=== PATIENT | male | born 1945 | race Caucasian/White ===

== ENCOUNTER → 2018-08-13 07:59 | Outpatient (CLI) | payer OTHER, SELFPAY ==
[2018-08-13 08:35] LABS: Add Manual Diff / Slide Review NO; Basophils Percent Auto 0.6 % (0-2); Eosinophils Percent Auto 2.1 % (2-4); Hemoglobin 15.3 g/dL (13.5-17.5); Lymphocytes Percent Auto 24.2 % (25-40); Mean Corpuscular Hemoglobin 32.4 PG (26-34); Mean Corpuscular Volume 95.3 fL (80-100); Monocytes Percent Auto 8.5 % (3-14); Neutrophils Absolute Auto 3600 /uL (3000-5900); Neutrophils Percent Auto 64.6 % (50-75); Platelet Count 247 X10^3/uL (150-400); Red Blood Cell Count 4.72 X10^6/uL (4.5-5.9); Red Cell Distribution Width 13.4 % (11.6-14.8); White Blood Cell Count 5.6 X10^3/uL (4.5-11.0)
[2018-08-13 08:44] LABS: Alanine Aminotransferase 29 IU/L (21-72); Albumin 3.8 g/dL (3.5-5.0); Albumin Globulin Ratio 1.5 (1.0-2.8); Alkaline Phosphatase 66 U/L (38-126); Aspartate Aminotransferase 26 IU/L (17-59); BUN Creatinine Ratio 15.6 (6-22); Bilirubin Total 0.4 mg/dL (0.2-1.3); Blood Urea Nitrogen 14 mg/dL (9-20); Carbon Dioxide 31 mmol/L (22-32); Chloride 101 mmol/L (98-107); Cholesterol 200 mg/dL (140-199); Estimated Glomerular Filt Rate > 60.0 mL/min (>60); Globulin 2.6 g/dL (1.7-4.1); Glucose 80 mg/dL (80-110); HDL Cholesterol 57 mg/dL (40-60); HEMOLYSIS < 15 (0-50); LDL Cholesterol Calculated 130 mg/dL (<100); Potassium 4.1 mmol/L (3.4-5.1); Sodium 141 mmol/L (137-145); Total Protein 6.4 g/dL (6.3-8.2); Triglycerides 63 mg/dL (35-150)
[2018-08-13 09:11] LABS: Prostate Specific Antigen Scrn 1.04 ng/mL (0.1-4.0)
== END ==
PROVIDERS: PCP Internal Medicine; Visit Provider Internal Medicine
DX: C85.90 Non-Hodgkin lymphoma, unspecified, unspecified site (principal); N40.1 Benign prostatic hyperplasia with lower urinary tract symptoms; Z12.5 Encounter for screening for malignant neoplasm of prostate
CPT/HCPCS: 36415; 80053; 80061; 85025; G0103

== ENCOUNTER 2019-03-15 05:26 | Emergency (ER) | payer OTHER, SELFPAY ==
[2019-03-15 05:35] VITALS: BP 171/111; PULSE 99; RESP 16; TEMP 36.6; O2SAT 99
[2019-03-15 05:39] VITALS: BP 165/80
[2019-03-15 05:44] LABS: Bacteria Urine None Seen
[2019-03-15 05:51] LABS: Appearance Urine UA TURBID; Bilirubin Urine UA NEGATIVE (NEGATIVE); Color Urine UA BROWN; Glucose Urine UA NEGATIVE (Negative); Ketones Urine UA TRACE (NEGATIVE); Leukocyte Esterase Urine UA TRACE (NEGATIVE); Nitrite Urine UA NEGATIVE (Negative); Occult Blood Urine UA 3+ (Negative); Protein Urine UA 2+ (Negative); Urobilinogen Urine UA 0.2 E.U./dL (0.2); pH Urine UA 6.5 (4.5-8.0)
[2019-03-15 05:53] LABS: RBC Urine >100/HPF (0-5/HPF); WBC Urine 0-1/HPF (0-5/HPF)
[2019-03-15 05:54] LABS: Culture Indicated Urine Specimen Cultured
--- NOTE | 2019-03-15 06:37 | ED.MALEGU ---
HPI - Male Genitourinary General Chief complaint: Urogenital-Male Stated complaint: urinary retention x3 hours Time Seen by Provider: 03/15/19 05:39 Source: patient Mode of arrival: ambulatory Limitations: no limitations History of Present Illness HPI Narrative: Patient is a 73-year-old male with a known history of BPH. Within the past week underwent a urologic procedure for this condition. He stated that he was told by the urologist that he would have some bleeding. He stated he did have some bleeding immediately after the procedure but that has since improved. He states that for the past day he has had decreased urine output. Decreased stream. Urgency and then blood in his urine this morning. Related Data Home Medications Medication Instructions Recorded Confirmed CA PANTOTHENATE/FOLIC ACID/VIT 1 tab PO QDAY #0 tab 06/20/13 09/14/18 (MULTIVITAMIN) Previous Rx's Medication Instructions Recorded tamsulosin 0.4 mg capsule 0.4 mg PO DAILY #90 cap 11/16/18 Allergies Allergy/AdvReac Type Severity Reaction Status Date / Time wheat Allergy Intermediate Verified 09/14/18 15:24 No Known Drug Allergies Allergy Unknown Verified 09/14/18 15:24 Review of Systems Constitutional Denies fever(s) Cardiovascular Denies chest pain and Denies dyspnea Respiratory Denies dyspnea Gastrointestinal Gastrointestinal: Reports abdominal pain, Denies diarrhea, Denies nausea and Denies vomiting Genitourinary Denies dysuria, Reports urinary frequency, Reports urinary hesitancy, Reports urinary incontinence and Reports urinary urgency Comments: Blood in the urine Integumentary/Breasts Denies rash Hematologic/Lymphatic Denies easy bleeding and Denies easy bruising [facility] Medical History Hearing deficit (Chronic) Vision disorder (Chronic) Non Hodgkin's lymphoma (Chronic 06/20/13) BPH loc w urin obs/LUTS (Chronic) H/O adenomatous polyp of colon (Chronic) Acne (Resolved ~1959) Chicken pox (Resolved ~1953) Measles (Resolved) Mumps (Resolved) Seasonal allergies (Resolved ~1960) TIA (transient ischemic attack) (Resolved ~2014) Social History Smoking Status: Former smoker Exam Initial Vital Signs Initial Vital Signs: Vital Signs Temperature 97.9 F 03/15/19 05:35 Pulse Rate 99 H 03/15/19 05:35 Respiratory Rate 16 03/15/19 05:35 Blood Pressure 171/111 H 03/15/19 05:35 Pulse Oximetry 99 03/15/19 05:35 Const General: cooperative, comfortable, well developed, well groomed and No acute distress Orientation: alert and oriented x3 Resp Effort & Inspection: normal respiratory effort Auscultation: clear to auscultation bilaterally Cardio Rate: regular rate Rhythm: regular rhythm GI Other: Lower abdominal distention and pain External: normal external exam and circumcised Meatus: meatus normal Skin Lesions: no lesions Rashes: no rashes Neuro General: alert and awake Cognition: normal cognition Speech: speech normal Extrem General: normal to inspection and capillary refill normal Psych Appearance: grossly normal and well kempt Course Orders Ordered: ED Orders 03/15/19 05:34 Urinalysis and Microscopic Stat Urine Culture Stat Vital Signs - 8 hr 03/15/19 05:35 03/15/19 05:39 Temperature 97.9 F Pulse Rate 99 H Respiratory Rate 16 Blood Pressure 171/111 H Blood Pressure [Left Arm] 165/80 H Pulse Oximetry 99 MDM - Male Genitourinary Lab Data Attestation: I reviewed the patient's lab results. Lab Results 03/15/19 Range/Units 05:34 Urine Color Brown Urine Appearance Turbid Urine pH 6.5 (4.5-8.0) Ur Specific [place] 1.020 (1.000-1.035) Urine Protein 2+ H (Negative) Urine Glucose (UA) Negative (Negative) g/dL Urine Ketones Trace H (NEGATIVE) Urine Occult Blood 3+ H (Negative) Urine Nitrate Negative (Negative) Urine Bilirubin Negative (NEGATIVE) Urine Urobilinogen 0.2 (0.2) E.U./dL Ur Leukocyte Esterase Trace H (NEGATIVE) Urine RBC >100/hpf (0-5/HPF) Urine WBC 0-1/hpf (0-5/HPF) Urine Bacteria None seen (None) Ur Culture Indicated? Specimen cultured [facility] Narrative Medical decision making narrative: No signs of infection on the urinalysis. Patient was irrigated with fluid until there was a clear return of liquid. Had a discussion with the patient his regarding options to include leaving the catheter in versus removing it. We discussed the risks and benefits of this. After this discussion the patient opted to leave the catheter in. He is going to contact his urologist later today for a follow-up. He was given care instructions and return precautions with regard to the catheter. Both he and his expressed understanding and agreement with plan. Discharge Plan Departure Patient Disposition: Home Clinical Impression: Acute urinary retention Hematuria Qualifiers: Hematuria type: gross Qualified Code(s): R31.0 - Gross hematuria Instructions: How to Care for Your Del Real Catheter -- Male, DI for Hematuria Activity Restrictions/Additional Instructions: Later today contact your urologist to discuss follow-up. Return to the emergency department for any fevers, pain or if the Del Real catheter stops draining urine. Prescriptions: No Action CA PANTOTHENATE/FOLIC ACID/VIT (MULTIVITAMIN) 1 tab PO QDAY Qty: 0 RF: 0 tamsulosin 0.4 mg capsule 0.4 mg PO DAILY Qty: 90 RF: 3 Referrals: Niranjan Yi MD [Primary Care Provider] -
--- NOTE | 2019-03-15 06:55 | PC.NURSE ---
This RN met resistance when advancing catheter. Due to pt's recent procedure Dr. Reyes called to room to assess. Dr. Reyes was able to advance catheter the rest of the way. Urine return had noticeable blood. 500mL of manual irrigation performed, return became clear-light pink. Continuous irrigation hooked up and clear return continues. Dr. Reyes aware.
[2019-03-15 07:35] VITALS: BP 143/87; PULSE 83; RESP 18; O2SAT 98
== END 2019-03-15 07:35 | disposition home or self-care (01) ==
PROVIDERS: Emergency Provider Emergency Medicine; Family Provider Internal Medicine; PCP Internal Medicine
DX: R33.8 Other retention of urine (principal); R31.0 Gross hematuria
CPT/HCPCS: 51701; 51798; 81001; 87086; 99283

== ENCOUNTER 2019-08-02 08:41 | Inpatient (IN) | payer OTHER, SELFPAY ==
[2019-08-02] VITALS (8 sets, daily range): BP systolic 111–149; BP diastolic 55–77; PULSE 71–97; RESP 14–21; TEMP 36.5–38.2; O2SAT 97–99; BMI 25.0
--- NOTE | 2019-08-02 09:18 | ED_ITS ---
HPI - Abdominal Pain General Chief Complaint: Abdominal Pain Stated Complaint: stomach cramps nausea x3 days Time Seen by Provider: 08/02/19 09:09 Source: patient Mode of arrival: Ambulatory Limitations: no limitations History of Present Illness HPI narrative: Patient is [id number] male who presents with abdominal pain and right lower quadrant pain ongoing for last 2 days. He initially thought it was bad grapes that he ate he was having some cramping. However he has lost his appetite and he has intense pain in his right lower side every time he moves his leg or has any movement at all. He denies any nausea or vomiting. He has been taking some charcoal tablets of thinking that might help however he continues to have pain and discomfort. MD complaint: abdominal pain Onset (ago): day(s) (2) Pain Consistency: constant Location: RLQ Severity: severe Quality: cramping and stabbing Radiation: none Migration to: no migration Related Data Home Medications Medication Instructions Recorded Confirmed Hyaluronic Acid (chond-collgn) 1 dose PO DAILY 08/02/19 08/02/19 Vitamin B Capsule 1 cap PO DAILY 08/02/19 08/02/19 Vitamin D3 1 cap PO DAILY 08/02/19 08/02/19 ascorbic [id number] 1,000 mg PO DAILY 08/02/19 08/02/19 [Emergen-C] bilberry 1 cap PO DAILY 08/02/19 08/02/19 chromium chloride 1 dose PO DAILY 08/02/19 08/02/19 cyanocobalamin (vitamin B-12) 500 mcg PO DAILY 08/02/19 08/02/19 [Vitamin B-12] evening primrose oil 500 mg PO DAILY 08/02/19 08/02/19 lutein 1 tab PO DAILY 08/02/19 08/02/19 magnesium 1 tab PO DAILY 08/02/19 08/02/19 vitamin A 1 cap PO DAILY 08/02/19 08/02/19 Previous Rx's Medication Instructions Recorded tamsulosin 0.4 mg capsule 0.4 mg PO DAILY #90 cap 11/16/18 Allergies Allergy/AdvReac Type Severity Reaction Status Date / Time wheat Allergy Intermediate Verified 09/14/18 15:24 No Known Drug Allergies Allergy Unknown Verified 09/14/18 15:24 Review of Systems Review of Systems Narrative: GENERAL: Denies chills, fatigue, malaise, fever, sweats, travel HEENT: Denies sinus pain, ear pain, sore throat, difficulty swallowing, neck pain RESPIRATORY: Denies dyspnea, cough, wheezing, hemoptysis, sputum. CARDIOVASCULAR: Denies chest pain, palpitations, orthopnea, edema GASTROINTESTINAL: See HPI : Denies dysuria, frequency, incontinence, hematuria, urinary retention, flank pain. MUSCULOSKELETAL: Denies weakness, joint pain, or bony pain SKIN: No rash, no erythema, no pruritus NEUROLOGIC: Denies weakness, dizziness, headache, numbness, change in speech, confusion PSYCHIATRIC: No concerning psychosocial issues. 12 point review of systems is negative except for those stated above and HPI Patient History Medical History Acne (Resolved ~1959) BPH loc w urin obs/LUTS (Chronic) Chicken pox (Resolved ~1953) H/O adenomatous polyp of colon (Chronic) Hearing deficit (Chronic) Measles (Resolved) Mumps (Resolved) Non Hodgkin's lymphoma (Chronic 06/20/13) Seasonal allergies (Resolved ~1960) TIA (transient ischemic attack) (Resolved ~2014) Vision disorder (Chronic) Surgical History Anesthesia (Resolved) History of surgery (Resolved ~1988) History of tonsillectomy (Inactive ~1952) Family History Brother Liver cancer Brother Age: 82 High cholesterol Father Heart disease Mother Heart disease Sister Age: 69 Hypertension Social History Smoking Status: Former smoker Family History Brother Liver cancer Brother Age: 82 High cholesterol Father Heart disease Mother Heart disease Sister Age: 69 Hypertension Social History Smoking Status: Former smoker Exam Initial Vital Signs Initial Vital Signs: Vital Signs Temperature 97.7 F 08/02/19 08:50 Pulse Rate 96 H 08/02/19 08:50 Respiratory Rate 14 08/02/19 08:50 Blood Pressure 138/77 08/02/19 08:50 Pulse Oximetry 97 08/02/19 08:50 GENERAL: Well-appearing, well-nourished and in no acute distress. HEENT: Head atraumatic,EOMI, pupils reactive, face symmetric, moist mucous membranes CARDIOVASCULAR: Regular rate and rhythm without murmurs, rubs or gallops. RESPIRATORY: Breath sounds equal bilaterally, no wheezes rales or rhonchi. ABDOMEN: Soft, diffuse mild tenderness however extreme tenderness and right lower quadrant with guarding EXTREMITIES: Normal range of motion, no clubbing or edema. Neurovascularly intact NEUROLOGICAL: Alert and oriented x4.Normal gait and speech. Cranial nerves II through XII grossly intact. SKIN: Warm, dry, no laceration, no petechiae, no rashes or lesions. Course Orders Ordered: ED Orders 08/02/19 09:00 Complete Blood Count AUTO DIFF Stat Comprehensive Metabolic Panel Stat Lipase Stat Magnesium Stat 08/02/19 09:58 CT abdomen pelvis w con Stat 08/02/19 10:30 Urine Microscopic Stat 08/02/19 10:38 XR chest 1V Stat Troponin & CK Cardiac Panel Stat 08/03/19 05:00 Basic Metabolic Panel DAILY Complete Blood Count AUTO DIFF DAILY Magnesium DAILY 08/04/19 05:00 Basic Metabolic Panel DAILY Complete Blood Count AUTO DIFF DAILY Magnesium DAILY 08/05/19 05:00 Basic Metabolic Panel DAILY Complete Blood Count AUTO DIFF DAILY Magnesium DAILY Acetaminophen (Tylenol) 650 mg PO Q6HR PRN PRN Reason: As Needed for Fever/Mild Pain Cyanocobalamin (Vitamin B-12) 500 mcg PO DAILY [facility] Enoxaparin Sodium (Lovenox) 40 mg SUBCUT DAILY [facility] Sodium Chloride (Normal Saline 0.9%) 1,000 mls @ 150 mls/hr IV CONT VETO Last Admin: 08/02/19 10:09 Dose: 150 mls/hr Documented by: BTONER Piperacillin/Tazobactam/Dextrose (Zosyn) 3.375 gm in 50 mls @ 100 mls/hr IV Q6H [facility] Magnesium Oxide (Mag Ox) 400 mg PO DAILY [facility] Morphine Sulfate (Morphine) 2 mg IV Q4HR PRN PRN Reason: Breakthrough Pain Ondansetron HCl (Zofran) 4 mg IV Q4HR PRN PRN Reason: Nausea And Vomiting Oxycodone/Acetaminophen (Percocet 5/325) 1 tab PO Q4HR PRN PRN Reason: Pain, Moderate (4-6) Tamsulosin HCl (Flomax) 0.4 mg PO DAILY [facility] Vitamin B Complex (Vitamin B Complex) 1 cap PO DAILY [facility] Vitamin D (Vitamin D3) 1,000 unit PO DAILY [facility] Discontinued Medications Levofloxacin (Levaquin) 750 mg in 150 mls @ 100 mls/hr IV NOW ONE Stop: 08/02/19 12:08 Last Admin: 08/02/19 12:02 Dose: Not Given Documented by: LOYDUITT Piperacillin/Tazobactam/Dextrose (Zosyn) 3.375 gm in 50 mls @ 100 mls/hr IV NOW ONE Stop: 08/02/19 11:38 Last Infusion: 08/02/19 12:02 Dose: 0 mls/hr Documented by: Admin: 08/02/19 11:18 Dose: 100 mls/hr Documented by: CPRUITT Sodium Chloride (Normal Saline 0.9%) 1,000 mls @ 100 mls/hr IV CONT VETO Ketorolac Tromethamine (Toradol) 30 mg IV NOW ONE Stop: 08/02/19 10:38 Last Admin: 08/02/19 13:58 Dose: Not Given Documented by: UMM Morphine Sulfate (Morphine) 2 mg IV NOW ONE Stop: 08/02/19 09:16 Last Admin: 08/02/19 10:08 Dose: 2 mg Documented by: BTONER Consultations Consultation #1: Dr. jj, with surgery updated patient's symptoms test results. In the ED to see and evaluate patient. Requested Zosyn or Levaquin and Flagyl. Time: 11:11 Vital Signs Vital signs: Vital Signs - 8 hr 08/02/19 08:50 08/02/19 11:00 08/02/19 12:00 Temperature 97.7 F Pulse Rate 96 H 72 76 Respiratory Rate 14 17 21 Blood Pressure 138/77 Blood Pressure [Left Arm] 140/75 134/55 L Pulse Oximetry 97 99 98 08/02/19 13:00 Temperature Pulse Rate 76 Respiratory Rate 20 Blood Pressure Blood Pressure [Left Arm] 128/64 Pulse Oximetry 97 MDM - Abdominal Pain Lab Data Result diagrams: 08/02/19 09:00 08/02/19 09:00 Labs: Lab Results 08/02/19 08/02/19 08/02/19 Range/Units 09:00 09:00 10:30 WBC 18.3 H (4.5-11.0) X10^3/uL RBC 4.64 (4.5-5.9) X10^6/uL Hgb 15.0 (13.5-17.5) g/dL Hct 44.1 (41-53) % MCV 95.0 (80-100) fL MCH 32.4 (26-34) PG MCHC 34.1 (30-36) % RDW 13.2 (11.6-14.8) % Plt Count 241 (150-400) X10^3/uL Neut % (Auto) 88.9 H (50-75) % Lymph % (Auto) 2.9 L (25-40) % [place] % (Auto) 8.0 (3-14) % Eos % (Auto) 0.1 L (2-4) % Baso % (Auto) 0.1 (0-2) % Neut # (Auto) 32593 H (0081-5989) /uL Lymph # (Auto) 500 L (1289-7739) /uL [place] # (Auto) 1500 H (0-900) /uL Eos # (Auto) 0 (0-450) /uL Baso # (Auto) 0 (0-100) /uL Sodium 129 L (137-145) mmol/L Potassium 4.0 (3.4-5.1) mmol/L Chloride 90 L (98-107) mmol/L Carbon Dioxide 27 (22-32) mmol/L BUN 13 (9-20) mg/dL Creatinine 0.80 (0.66-1.25) mg/dL Estimated GFR > 60.0 (>60) mL/min BUN/Creatinine Ratio 16.3 (6-22) Glucose 123 H (80-110) mg/dL Calcium 8.9 (8.4-10.2) mg/dL Total Bilirubin 1.5 H (0.2-1.3) mg/dL AST 31 (17-59) IU/L ALT 17 L (21-72) IU/L Alkaline Phosphatase 89 (38-126) U/L Total Creatine Kinase (55-170) U/L CK-MB (CK-2) CK-MB (CK-2) Rel Index Troponin I (0.01-0.034) ng/mL Total Protein 7.1 (6.3-8.2) g/dL Albumin 3.9 (3.5-5.0) g/dL Globulin 3.2 (1.7-4.1) g/dL Albumin/Globulin Ratio 1.2 (1.0-2.8) Lipase 18 L (23-300) U/L Urine RBC None seen (0-5/HPF) Urine WBC None seen (0-5/HPF) Urine Bacteria None seen (None) Ur Culture Indicated? Cult not indicated Micro UA Comment Microscopic normal 08/02/19 Range/Units 10:38 WBC (4.5-11.0) X10^3/uL RBC (4.5-5.9) X10^6/uL Hgb (13.5-17.5) g/dL Hct (41-53) % MCV (80-100) fL MCH (26-34) PG MCHC (30-36) % RDW (11.6-14.8) % Plt Count (150-400) X10^3/uL Neut % (Auto) (50-75) % Lymph % (Auto) (25-40) % [place] % (Auto) (3-14) % Eos % (Auto) (2-4) % Baso % (Auto) (0-2) % Neut # (Auto) (5694-8256) /uL Lymph # (Auto) (1027-1510) /uL [place] # (Auto) (0-900) /uL Eos # (Auto) (0-450) /uL Baso # (Auto) (0-100) /uL Sodium (137-145) mmol/L Potassium (3.4-5.1) mmol/L Chloride (98-107) mmol/L Carbon Dioxide (22-32) mmol/L BUN (9-20) mg/dL Creatinine (0.66-1.25) mg/dL Estimated GFR (>60) mL/min BUN/Creatinine Ratio (6-22) Glucose (80-110) mg/dL Calcium (8.4-10.2) mg/dL Total Bilirubin (0.2-1.3) mg/dL AST (17-59) IU/L ALT (21-72) IU/L Alkaline Phosphatase (38-126) U/L Total Creatine Kinase 23 L (55-170) U/L CK-MB (CK-2) TNP CK-MB (CK-2) Rel Index TNP Troponin I < 0.012 (0.01-0.034) ng/mL Total Protein (6.3-8.2) g/dL Albumin (3.5-5.0) g/dL Globulin (1.7-4.1) g/dL Albumin/Globulin Ratio (1.0-2.8) Lipase (23-300) U/L Urine RBC (0-5/HPF) Urine WBC (0-5/HPF) Urine Bacteria (None) Ur Culture Indicated? Micro UA Comment Point of care testing: Urine Dip Bedside Urine Glucose Negative Bedside Urine Bilirubin - Negative Bedside Urine Ketone ++ 40 Urine Specific [place] 1.005 Bedside Urine Occult Blood +/- Bedside Urine pH 6.0 Bedside Urine Protein - Negative Bedside Urine Urobilinogen - Negative Bedside Urine Nitrite - Negative Bedside Urine Leukocytes - Negative Esterase Discharge Plan Departure Patient Disposition: Admitted As Inpatient Clinical Impression: Acute appendicitis with rupture Admit Date/Time: 08/02/19 13:36 Admit Provider: Joselin Jj
[2019-08-02 09:27] LABS: Add Manual Diff / Slide Review NO; Basophils Absolute Auto 0 /uL (0-100); Basophils Percent Auto 0.1 % (0-2); Eosinophils Absolute Auto 0 /uL (0-450); Eosinophils Percent Auto 0.1 % (2-4); Hematocrit 44.1 % (41-53); Lymphocytes Absolute Auto 500 /uL (1100-4500); Lymphocytes Percent Auto 2.9 % (25-40); Mean Corpuscular HGB Conc 34.1 % (30-36); Mean Corpuscular Hemoglobin 32.4 PG (26-34); Monocytes Absolute Auto 1500 /uL (0-900); Neutrophils Absolute Auto 16300 /uL (1500-7000); Neutrophils Percent Auto 88.9 % (50-75); Platelet Count 241 X10^3/uL (150-400); Red Blood Cell Count 4.64 X10^6/uL (4.5-5.9); Red Cell Distribution Width 13.2 % (11.6-14.8); White Blood Cell Count 18.3 X10^3/uL (4.5-11.0)
[2019-08-02 09:33] LABS: Alanine Aminotransferase 17 IU/L (21-72); Albumin 3.9 g/dL (3.5-5.0); Albumin Globulin Ratio 1.2 (1.0-2.8); Alkaline Phosphatase 89 U/L (38-126); Aspartate Aminotransferase 31 IU/L (17-59); BUN Creatinine Ratio 16.3 (6-22); Bilirubin Total 1.5 mg/dL (0.2-1.3); Blood Urea Nitrogen 13 mg/dL (9-20); Calcium 8.9 mg/dL (8.4-10.2); Carbon Dioxide 27 mmol/L (22-32); Chloride 90 mmol/L (98-107); Estimated Glomerular Filt Rate > 60.0 mL/min (>60); Globulin 3.2 g/dL (1.7-4.1); Glucose 123 mg/dL (80-110); HEMOLYSIS 17 (0-50); Lipase 18 U/L (23-300); Sodium 129 mmol/L (137-145); Total Protein 7.1 g/dL (6.3-8.2)
--- NOTE | 2019-08-02 09:58 | DI.CT.S_ITS ---
PROCEDURE: CT ABDOMEN PELVIS W CON INDICATIONS: right lower quad pain TECHNIQUE: After the administration of intravenous contrast, 5 mm thick sections acquired from the diaphragm to the symphysis. 5 mm coronal and sagittal reformats were acquired. For radiation dose reduction, the following was used: automated exposure control, adjustment of mA and/or kV according to patient size. COMPARISON: None. FINDINGS: Image quality: Excellent. ABDOMEN: Lung bases: 5 mm pulmonary nodule seen in the right lung base Solid organs: Liver is normal in size and enhancement. Gallbladder unremarkable. Biliary system is non dilated. Pancreas enhances normally. Spleen is normal in size and enhancement. No adrenal nodules. Kidneys demonstrate normal size and enhancement, without hydronephrosis. Simple appearing left renal cyst Peritoneum and bowel: Appendix is enlarged and there is marked mural enhancement. Multiple appendicoliths are seen measuring up to 5 mm for example image 53 series 2. There is extensive periappendiceal and pericecal inflammatory change and fat stranding. A few bubbles of gas appear to be extraluminal for example image 53 series 2 Nodes and vessels: No retroperitoneal or mesenteric adenopathy by size criteria. Aorta and inferior vena cava are normal in size. Miscellaneous: No ventral hernias. PELVIS: Genitourinary: Bladder wall thickness is normal. Prostate enlarged Miscellaneous: No inguinal hernias or adenopathy. Bones: No suspicious bony lesions. No vertebral body compression fractures. IMPRESSION: Acute, perforated appendicitis with extensive right lower quadrant inflammatory changes. No definite abscess. Multiple appendicoliths. Incidentally noted a 5 mm right lung base pulmonary nodule, indeterminate. Recommend followup with CT chest in 6 months to exclude metastatic/malignant possibilities. Critical findings were personally telephoned and discussed with Dr. Vera in the emergency department at 1013 hours on 08/02/19. Dictated by: Richmond Mondragon M.D. on 08/02/2019 at 10:08 Approved by: Richmond Mondragon M.D. on 08/02/2019 at 10:15
[2019-08-02] MEDS: MORPHINE 2 MG/ML INJ IV (10:08)
[2019-08-02] MEDS: SODIUM CHLORIDE 0.9% 1,000 ML 150 ML IV ×2 (10:09→14:58)
--- NOTE | 2019-08-02 10:38 | DI.RAD.S_ITS ---
PROCEDURE: XR CHEST 1V INDICATIONS: chest pain TECHNIQUE: One view of the chest was acquired. COMPARISON: [facility], , CHEST 1 VIEW, 01/25/2015, 15:47. FINDINGS: Surgical changes and devices: None. Lungs and pleura: Lungs are clear. No pleural effusions or pneumothorax. Mediastinum: Mediastinal contours appear normal. Heart size is mildly enlarged. Bones and chest wall: No suspicious bony lesions. Overlying soft tissues appear unremarkable. IMPRESSION: No acute cardiopulmonary pathology. Dictated by: Alejandro Kidd M.D. on 08/02/2019 at 11:13 Approved by: Alejandro Kidd M.D. on 08/02/2019 at 11:14
[2019-08-02 10:54] LABS: Creatine Kinase 23 U/L (55-170)
[2019-08-02 11:07] LABS: Troponin I < 0.012 ng/mL (0.01-0.034)
[2019-08-02] MEDS: PIPERACILLIN-TAZO 3.375 GM/50 ML FROZ.PIGGY IV ×2 (11:18→18:42)
--- NOTE | 2019-08-02 12:03 | PM.HP.1 ---
History of Present Illness History of Present Illness Date Patient Seen: 08/02/19 Time Patient Seen: 12:03 Chief complaint: stomach cramps nausea x3 days Narrative: This is a 74-year-old man with history of lymphoma treated many years ago, BPH s/p Urolift, who comes into the ER with a 3 day history of abdominal pain, now focal in the right lower quadrant. Initially he thought he had eaten something bad, which caused his abdominal pain. He has a history of intermittent abdominal pains, and a high sensitivity to gluten and other types of foods. He does not have a specific GI diagnosis relative to these things. With history kept him from coming into the ER when his pain initially started on Monday night. He came in today because his pain is not relenting, and is quite severe. He had a CT scan of the abdomen and pelvis which showed evidence of a perforated appendicitis with a local phlegmon, a few locules of extraluminal air, and some appendiculoliths present. There is no abscess on the CT scan. He has no appetite at this point. He has had a colonoscopy in the past. His last colonoscopy was in 2013, and he was told he had polyps and needed a repeat colonoscopy in 2019. His primary doctor is Dr. Yi. He believes it has been about 1 year since he saw Dr. Yi. He says he is otherwise well and healthy. He denies any dysuria. He has had good improvement in his BPH symptoms after his urolift. He has a good exercise tolerance and denies any chronic health complaints. ROS: Thirteen system review is negative other than as mentioned below and in HPI. PE: GENERAL: Well groomed and cooperative. Appears stated age. Answers questions promptly and appropriately. Vital signs noted. HENT: Normocephalic, atraumatic. Hearing intact. Oral mucosa is pink and moist. EYES: Conjunctiva pink, sclera white, no periorbital swelling. CARDIOVASCULAR: Regular rate. No pedal edema. RESPIRATORY: Normal respiratory rate, breathing comfortably on room air. GASTROINTESTINAL: Abdomen soft and non-distended; markedly tender focally in right lower quadrant; negative Rovsing sign, no generalized peritonitis GENITALURINARY: No flank tenderness. MUSCULOSKELETAL: Equal tone and mass bilaterally. SKIN: Warm, dry, soft, appropriate color for ethnicity. No other lesions, rashes, or wounds. NEURO: Alert and Oriented X 3. Good coordination. No ataxia, or sensory deficits, or cognitive issues. PSYCH: Appropriate affect and mood. Patient History Medical History Acne (Resolved ~1959) BPH loc w urin obs/LUTS (Chronic) Chicken pox (Resolved ~1953) H/O adenomatous polyp of colon (Chronic) Hearing deficit (Chronic) Measles (Resolved) Mumps (Resolved) Non Hodgkin's lymphoma (Chronic 06/20/13) Seasonal allergies (Resolved ~1960) TIA (transient ischemic attack) (Resolved ~2014) Vision disorder (Chronic) Surgical History Anesthesia (Resolved) History of surgery (Resolved ~1988) History of tonsillectomy (Inactive ~1952) Family History Brother Liver cancer Brother Age: 82 High cholesterol Father Heart disease Mother Heart disease Sister Age: 69 Hypertension Social History Smoking Status: Former smoker Family & Social History Family History Brother Liver cancer Brother Age: 82 High cholesterol Father Heart disease Mother Heart disease Sister Age: 69 Hypertension Safety & Behavioral: Feels Safe in Current Yes Environment Been Physically Hurt or No Threatened By a Person Tobacco & Substance use: Smoking Status Former smoker Meds Home Medications and Allergies Home Medications Medication Instructions Recorded Confirmed Type tamsulosin 0.4 mg capsule 0.4 mg PO DAILY #90 cap 11/16/18 08/02/19 Rx Hyaluronic Acid (chond-collgn) 1 dose PO DAILY 08/02/19 08/02/19 History Vitamin B Capsule 1 cap PO DAILY 08/02/19 08/02/19 History Vitamin D3 1 cap PO DAILY 08/02/19 08/02/19 History ascorbic [id number]-[id number]-bdu 1,000 mg PO DAILY 08/02/19 08/02/19 History [Emergen-C] bilberry 1 cap PO DAILY 08/02/19 08/02/19 History chromium chloride 1 dose PO DAILY 08/02/19 08/02/19 History cyanocobalamin (vitamin B-12) 500 mcg PO DAILY 08/02/19 08/02/19 History [Vitamin B-12] evening primrose oil 500 mg PO DAILY 08/02/19 08/02/19 History lutein 1 tab PO DAILY 08/02/19 08/02/19 History magnesium 1 tab PO DAILY 08/02/19 08/02/19 History vitamin A 1 cap PO DAILY 08/02/19 08/02/19 History Allergies Allergy/AdvReac Type Severity Reaction Status Date / Time wheat Allergy Intermediate Verified 09/14/18 15:24 No Known Drug Allergies Allergy Unknown Verified 09/14/18 15:24 Exam Vital Signs (past 8 hours): - 08/02/19 08:50 08/02/19 11:00 Temperature 97.7 F Pulse Rate 96 H 72 Respiratory Rate 14 17 Blood Pressure 138/77 Blood Pressure [Left Arm] 140/75 Pulse Oximetry 97 99 Oxygen Delivery Method Room Air Objective Imaging CT scan - abdomen: My impression: Phlegmon in right lower quadrant. No abscess collection. Few locules of extraluminal air. Few appendicular with. Labs Result Diagrams: 08/02/19 09:00 08/02/19 09:00 Labs: Laboratory Results - last 24 hr 08/02/19 08/02/19 08/02/19 09:00 09:00 10:38 WBC 18.3 H RBC 4.64 Hgb 15.0 Hct 44.1 MCV 95.0 MCH 32.4 MCHC 34.1 RDW 13.2 Plt Count 241 Neut % (Auto) 88.9 H Lymph % (Auto) 2.9 L [place] % (Auto) 8.0 Eos % (Auto) 0.1 L Baso % (Auto) 0.1 Neut # (Auto) 56895 H Lymph # (Auto) 500 L [place] # (Auto) 1500 H Eos # (Auto) 0 Baso # (Auto) 0 Sodium 129 L Potassium 4.0 Chloride 90 L Carbon Dioxide 27 BUN 13 Creatinine 0.80 Estimated GFR > 60.0 BUN/Creatinine Ratio 16.3 Glucose 123 H Calcium 8.9 Total Bilirubin 1.5 H AST 31 ALT 17 L Alkaline Phosphatase 89 Total Creatine Kinase 23 L CK-MB (CK-2) TNP CK-MB (CK-2) Rel Index TNP Troponin I < 0.012 Total Protein 7.1 Albumin 3.9 Globulin 3.2 Albumin/Globulin Ratio 1.2 Lipase 18 L Assessment & Plan Assessment and plan (1) H/O adenomatous polyp of colon: Problem details: The patient is due for screening colonoscopy. If he does get through this episode acute appendicitis with antibiotics, we will plan on an interval colonoscopy prior to an interval appendectomy. Current visit: No Status: Chronic (2) Appendicitis with perforation: Problem details: I had a long discussion with the patient and his regarding the appropriate management of his appendicitis. He does have evidence of a focal perforation. There are a few locules of free air on his CT scan. However he does not have an abscess, or generalized peritonitis. He has evidence of a significant phlegmon/inflammatory process around the cecum, distal ileum, and appendix. I explained to him that going in operatively now has a higher chance of requiring an ileocecectomy or even ileostomy given the amount of inflammation in the right lower quadrant. I explained that now it is common to manage this type of finding with antibiotics, and plan on an interval colonoscopy followed by an interval appendectomy once he has recovered from this acute episode. I did tell him he has nearly 100% chance of recurrent appendicitis within the next 2 years if we do not remove his appendix. However it is my clinical opinion that he has a good chance of a much less morbid operation if we treated with antibiotics now, and delay surgery until the phlegmon and inflammatory process around his cecum, appendix, and ileum has resolved. In addition people of his age group have a much higher likelihood of a neoplastic cause of the appendicitis. In his case he does have appendicoliths on his CT scan, which are likely cause of his appendicitis. However, it is appropriate to do a colonoscopy in his case prior to appendectomy if we are able to get him through this acute process with antibiotics and delay his appendectomy for a few months. Plan: IV Zosyn q.6h Clear liquid diet for comfort IV fluid P.o. and IV pain meds as needed Ambulate as tolerated Repeat labs tomorrow morning If he improves on antibiotics, we will plan on sending him home on a 2 week course of oral antibiotics If he does not improve, we will go ahead to the operating room Current visit: Yes Status: Acute Quality VTE Deep Vein Thrombosis/Pulmonary Embolism Present on Admission: No
[2019-08-02 12:45] LABS: Bacteria Urine None Seen; RBC Urine None Seen (0-5/HPF); WBC Urine None Seen (0-5/HPF)
[2019-08-02 12:53] LABS: Culture Indicated Urine Cult Not Indicated; Urine Comments Microscopic Normal
[2019-08-02 14:26] LABS: Magnesium 1.9 mg/dL (1.6-2.3)
[2019-08-02] MEDS: OXYCODONE/ACETAMINOPHEN 5/325 TABLET 1 TAB PO ×2 (14:58→19:33)
--- NOTE | 2019-08-02 15:36 | PC.NURSE ---
Pt admitted with dx of perforated appe. Per surgeon he will be getting iv antibiotics here and then go home. He will have his procedure later on. Temp of 100.8 and percocet given. On clear liquids and tolerating well. Pts in room. He is on ivf and comfortable at this time.
[2019-08-03] VITALS (8 sets, daily range): BP systolic 109–141; BP diastolic 54–68; PULSE 71–91; RESP 16–20; TEMP 36.8–38.7; O2SAT 93–96
[2019-08-03] MEDS: OXYCODONE/ACETAMINOPHEN 5/325 TABLET 1 TAB PO ×2 (00:08→05:33)
[2019-08-03 05:27] LABS: Add Manual Diff / Slide Review NO; Basophils Absolute Auto 0 /uL (0-100); Basophils Percent Auto 0.2 % (0-2); Eosinophils Absolute Auto 0 /uL (0-450); Eosinophils Percent Auto 0.2 % (2-4); Hematocrit 37.6 % (41-53); Lymphocytes Absolute Auto 800 /uL (1100-4500); Lymphocytes Percent Auto 5.1 % (25-40); Mean Corpuscular HGB Conc 34.6 % (30-36); Mean Corpuscular Volume 95.3 fL (80-100); Monocytes Absolute Auto 1100 /uL (0-900); Monocytes Percent Auto 6.7 % (3-14); Neutrophils Absolute Auto 14200 /uL (1500-7000); Neutrophils Percent Auto 87.8 % (50-75); Platelet Count 218 X10^3/uL (150-400); Red Blood Cell Count 3.95 X10^6/uL (4.5-5.9); Red Cell Distribution Width 13.3 % (11.6-14.8); White Blood Cell Count 16.2 X10^3/uL (4.5-11.0)
[2019-08-03] MEDS: PIPERACILLIN-TAZO 3.375 GM/50 ML FROZ.PIGGY IV ×5 (05:32→22:56)
[2019-08-03] MEDS: SODIUM CHLORIDE 0.9% 1,000 ML 150 ML IV ×3 (05:34→17:59)
[2019-08-03 05:41] LABS: BUN Creatinine Ratio 12.5 (6-22); Blood Urea Nitrogen 10 mg/dL (9-20); Calcium 7.9 mg/dL (8.4-10.2); Carbon Dioxide 29 mmol/L (22-32); Chloride 99 mmol/L (98-107); Estimated Glomerular Filt Rate > 60.0 mL/min (>60); Glucose 89 mg/dL (80-110); HEMOLYSIS < 15 (0-50); Magnesium 1.9 mg/dL (1.6-2.3); Potassium 3.7 mmol/L (3.4-5.1); Sodium 133 mmol/L (137-145)
--- NOTE | 2019-08-03 06:06 | PC.NURSE ---
Pt reported RLQ 6/10, percocet given with good effect x2. Pt on IV zosyn, monitoring WBC. Pt with hypoactive bowel tones, denies passing flatus, abd tender at RLQ to light palpation, otherwise soft and non distended. Pt tolerating clear liq diet without nausea. Monitoring for s/s increased infection, Tmax 99.9. Pt using call light for OOB transfer to BR, using urinal at bedside overnight. to bring in copy of advance directives today.
--- NOTE | 2019-08-03 08:26 | P.PN_ITS ---
Subjective Subjective Date Patient Seen: 08/03/19 Time Patient Seen: 08:26 Interval history: No acute events overnight. Pain well controlled with PO pain meds. Pt denies nausea. Feels hungry. Exam Vital Signs (past 8 hours): - 08/03/19 05:27 Temperature 98.3 F Pulse Rate 77 Respiratory Rate 18 Blood Pressure 141/68 H Pulse Oximetry 93 Oxygen Delivery Method Room Air Oxygen Flow Rate 0 Narrative Exam Narrative: GENERAL: Well groomed and cooperative. Appears stated age. Answers questions promptly and appropriately. Vital signs noted. HENT: Normocephalic, atraumatic. Hearing intact. Oral mucosa is pink and moist. EYES: Conjunctiva pink, sclera white, no periorbital swelling. CARDIOVASCULAR: Regular rate. No pedal edema. RESPIRATORY: Normal respiratory rate, breathing comfortably on room air. GASTROINTESTINAL: Abdomen soft and non-distended; mild TTP in RLQ; negative Rovsings sign GENITALURINARY: No flank tenderness. MUSCULOSKELETAL: Equal tone and mass bilaterally. SKIN: Warm, dry, soft, appropriate color for ethnicity. No other lesions, rashes, or wounds. NEURO: Alert and Oriented X 3. Good coordination. No gross sensory deficits, or cognitive issues. PSYCH: Appropriate affect and mood. Objective Labs Result Diagrams: 08/03/19 05:16 08/03/19 05:16 Labs: Laboratory Results - last 24 hr 08/02/19 08/02/19 08/02/19 09:00 09:00 09:00 WBC 18.3 H RBC 4.64 Hgb 15.0 Hct 44.1 MCV 95.0 MCH 32.4 MCHC 34.1 RDW 13.2 Plt Count 241 Neut % (Auto) 88.9 H Lymph % (Auto) 2.9 L [place] % (Auto) 8.0 Eos % (Auto) 0.1 L Baso % (Auto) 0.1 Neut # (Auto) 30962 H Lymph # (Auto) 500 L [place] # (Auto) 1500 H Eos # (Auto) 0 Baso # (Auto) 0 Sodium 129 L Potassium 4.0 Chloride 90 L Carbon Dioxide 27 BUN 13 Creatinine 0.80 Estimated GFR > 60.0 BUN/Creatinine Ratio 16.3 Glucose 123 H Calcium 8.9 Magnesium 1.9 Total Bilirubin 1.5 H AST 31 ALT 17 L Alkaline Phosphatase 89 Total Creatine Kinase CK-MB (CK-2) CK-MB (CK-2) Rel Index Troponin I Total Protein 7.1 Albumin 3.9 Globulin 3.2 Albumin/Globulin Ratio 1.2 Lipase 18 L Urine RBC Urine WBC Urine Bacteria Ur Culture Indicated? Micro UA Comment 08/02/19 08/02/19 08/03/19 10:30 10:38 05:16 WBC 16.2 H RBC 3.95 L Hgb 13.0 L Hct 37.6 L MCV 95.3 MCH 33.0 MCHC 34.6 RDW 13.3 Plt Count 218 Neut % (Auto) 87.8 H Lymph % (Auto) 5.1 L [place] % (Auto) 6.7 Eos % (Auto) 0.2 L Baso % (Auto) 0.2 Neut # (Auto) 30934 H Lymph # (Auto) 800 L [place] # (Auto) 1100 H Eos # (Auto) 0 Baso # (Auto) 0 Sodium Potassium Chloride Carbon Dioxide BUN Creatinine Estimated GFR BUN/Creatinine Ratio Glucose Calcium Magnesium Total Bilirubin AST ALT Alkaline Phosphatase Total Creatine Kinase 23 L CK-MB (CK-2) TNP CK-MB (CK-2) Rel Index TNP Troponin I < 0.012 Total Protein Albumin Globulin Albumin/Globulin Ratio Lipase Urine RBC None seen Urine WBC None seen Urine Bacteria None seen Ur Culture Indicated? Cult not indicated Micro UA Comment Microscopic normal 08/03/19 05:16 WBC RBC Hgb Hct MCV MCH MCHC RDW Plt Count Neut % (Auto) Lymph % (Auto) [place] % (Auto) Eos % (Auto) Baso % (Auto) Neut # (Auto) Lymph # (Auto) [place] # (Auto) Eos # (Auto) Baso # (Auto) Sodium 133 L Potassium 3.7 Chloride 99 Carbon Dioxide 29 BUN 10 Creatinine 0.80 Estimated GFR > 60.0 BUN/Creatinine Ratio 12.5 Glucose 89 Calcium 7.9 L Magnesium 1.9 Total Bilirubin AST ALT Alkaline Phosphatase Total Creatine Kinase CK-MB (CK-2) CK-MB (CK-2) Rel Index Troponin I Total Protein Albumin Globulin Albumin/Globulin Ratio Lipase Urine RBC Urine WBC Urine Bacteria Ur Culture Indicated? Micro UA Comment Assessment & Plan Assessment and plan (1) Appendicitis with perforation: Problem details: I again discussed with the patient and his regarding the appropriate management of his appendicitis. He does have evidence of a focal perforation. There are a few locules of free air on his CT scan. However he does not have an abscess, or generalized peritonitis. He has evidence of a significant phlegmon/inflammatory process around the cecum, distal ileum, and appendix. I explained to him that going in operatively now has a higher chance of requiring an ileocecectomy or even ileostomy given the amount of inflammation in the right lower quadrant. I explained that now it is common to manage this type of finding with antibiotics, and plan on an interval colonoscopy followed by an interval appendectomy once he has recovered from this acute episode. I did tell him he has nearly 100% chance of recurrent appendicitis within the next 2 years if we do not remove his appendix. However it is my clinical opinion that he has a good chance of a much less morbid operation if we treated with antibiotics now, and delay surgery until the phlegmon and inflammatory process around his cecum, appendix, and ileum has resolved. In addition people of his age group have a much higher likelihood of a neoplastic cause of the appendicitis. In his case he does have appendicoliths on his CT scan, which are likely cause of his appendicitis. However, it is appropriate to do a colonoscopy in his case prior to appendectomy if we are able to get him through this acute process with antibiotics and delay his appendectomy for a few months. Interval events: WBC coming down, exam improved, pt now feels hungry. Plan: IV Zosyn q.6h Advance diet as tolerated, gluten free per patient request IV fluid at 75/hr P.o. and IV pain meds as needed Ambulate as tolerated; 20 minutes TID Repeat labs daily If he improves on antibiotics, we will plan on sending him home on a 2 week course of oral antibiotics once his pain is gone and WBC is normal If he does not improve, we will go ahead to the operating room Current visit: Yes Status: Acute (2) H/O adenomatous polyp of colon: Problem details: The patient is due for screening colonoscopy. If he does get through this episode acute appendicitis with antibiotics, we will plan on an interval colonoscopy prior to an interval appendectomy. Current visit: No Status: Chronic Quality VTE Deep Vein Thrombosis/Pulmonary Embolism Present on Admission: No
[2019-08-03] MEDS: ENOXAPARIN 40 MG/0.4 ML SYRINGE SUBCUT (08:49)
[2019-08-03] MEDS: MAGNESIUM OXIDE 400 MG TABLET PO (08:50)
[2019-08-03] MEDS: VITAMIN B COMPLEX 1 CAPSULE 1 CAP PO (08:50)
[2019-08-03] MEDS: TAMSULOSIN 0.4 MG CAPSULE PO (08:50)
[2019-08-03] MEDS: CYANOCOBALAMIN (VITAMIN B-12) 500 MCG TABLET PO (08:50)
[2019-08-03] MEDS: CHOLECALCIFEROL (VITAMIN D3) 1,000 UNIT TABLET 1000 UNIT PO (08:50)
[2019-08-03] MEDS: ACETAMINOPHEN 325 MG TABLET 650 MG PO (09:00)
[2019-08-03] MEDS: ONDANSETRON 4 MG/2 ML INJ IV (12:57)
--- NOTE | 2019-08-03 14:09 | PM.PN.1 ---
Subjective Subjective Date Patient Seen: 08/03/19 Time Patient Seen: 11:19 Interval history: The patient is a gentleman who is under treatment with IV antibiotics for a phlegmon/chronic infection secondary to presumed perforated appendicitis. Feels much better today. Pain has subsided. Not nauseated when I saw him. However later I was called because after eating lunch which was a soft mechanical diet he had an onset of severe nausea and pain. He was treated with Zofran and made NPO and became much more comfortable and is presently asleep. Exam Vital Signs (past 8 hours): - 08/03/19 08:00 08/03/19 09:00 Temperature 99.4 F 99.4 F Pulse Rate 71 Respiratory Rate 16 Blood Pressure 114/62 Pulse Oximetry 95 Oxygen Delivery Method Room Air Oxygen Flow Rate 0 Narrative Exam Narrative: Lungs are clear. No rales or rhonchi. Abdomen is scaphoid soft. Slight tenderness in the right lower quadrant. No guarding. Objective Labs Result Diagrams: 08/03/19 05:16 08/03/19 05:16 Labs: Laboratory Results - last 24 hr 08/02/19 08/03/19 08/03/19 09:00 05:16 05:16 WBC 16.2 H RBC 3.95 L Hgb 13.0 L Hct 37.6 L MCV 95.3 MCH 33.0 MCHC 34.6 RDW 13.3 Plt Count 218 Neut % (Auto) 87.8 H Lymph % (Auto) 5.1 L [place] % (Auto) 6.7 Eos % (Auto) 0.2 L Baso % (Auto) 0.2 Neut # (Auto) 14670 H Lymph # (Auto) 800 L [place] # (Auto) 1100 H Eos # (Auto) 0 Baso # (Auto) 0 Sodium 133 L Potassium 3.7 Chloride 99 Carbon Dioxide 29 BUN 10 Creatinine 0.80 Estimated GFR > 60.0 BUN/Creatinine Ratio 12.5 Glucose 89 Calcium 7.9 L Magnesium 1.9 1.9 Assessment & Plan Assessment & Plan narrative: Chronic phlegmon secondary to perforated appendicitis. Continue broad-spectrum IV antibiotics. Backed off the diet back to clear liquids. Encouraged ambulation. Quality VTE Deep Vein Thrombosis/Pulmonary Embolism Present on Admission: No
--- NOTE | 2019-08-03 14:40 | PC.NURSE ---
1300 Pt in bed, c/o ,nausea and states is having severe low abd pain and nausea. Pt med w/zofran IV, Pt states he ate some turkey for lunch. Pt at bedside, Pt is grimacing and has hands over low abd. Abd remains soft, tender when palpated. A call to surgeon, DR Jose, put out per his private pager. and to his on service. 1330 . Reported all to Dr Jose, mPt made NPO. Pt states is much better msince the Zofran. 1400 Pt resting quietly in bed, eyes closed, even resp, No distress noted.
--- NOTE | 2019-08-03 15:21 | CM.DANOTE ---
Patient is a 74 year old male who was admitted on 08/02/19 for Stomach Cramps. Pt has [facility] for insurance and his PCP is Dr. Yi. EMR was reviewed. Per Surgeon, pt with acute appendicitis with perforation and trying to conservatively manage with IV-Abx to decrease swelling to hopefully decrease chance of need for illeostomy. Pt currently receiving IV-Abx and seemed to be tolerating food but became increasingly uncomfortable and nauseous and now NPO. Per TRAIN [employer]RAKEMAN, pt has felt very sick the last couple hours and spouse has been bedside but left to get some food. SW met briefly with pt bedside and explained role and pt clearly uncomfortable and able to confirm that he lives at home with his in [place] and she is his DPOA. Pt unsure of his needs at this time pending possible need for surgical intervention. Pt not medically appropriate at this time for further d/c discussion as he is requiring rest. Plan: SW to follow closely to determine if pt will require surgery and further identified discharge planning needs towards more indepth bedside assessment. NOAH Coker Discharge Planning/Care Management Advanced directive,confirm from FACILITY Start: 08/02/19 14:39 Freq: Q24H Status: Active Protocol: Document 08/02/19 14:40 CLL (Rec: 08/02/19 14:40 CLL [id number]) Advance Directive, confirm on record Time 14:40 Person contacted Copy received No Document 08/03/19 05:30 (Rec: 08/03/19 05:31 [email or web address]) Advance Directive, confirm on record Time 14:40 Person contacted Copy received No Time 05:31 Person contacted pt stated he will remind his to bring a copy in today Copy received No CM Discharge Assessment Start: 08/03/19 15:19 Freq: Status: Active Protocol: Document 08/03/19 15:19 BF (Rec: 08/03/19 15:21 BF [email or web address]) Discharge Planning Assessment Assigned Powerhouse Laborer NOAH Altamirano DPOA/Assigned Designee Name Spouse Billie Contact Information [phone] Advance Directives? No Advance Directives on File Yes History Provided By Patient,Significant Other, Medical Record Has Patient been admitted in last 30 No days? Prior Living Arrangements House Household Members spouse Independent with ADL's Yes Is patient alert and oriented? Yes Caregiver for Another No Comment waiting to see how pt progresses while in the hospital Barriers to Discharge No Discharge Plan Home with Home Health Transportation Arrangement Spouse bedside and likely can transport if pt safe for home Additional Comment Waiting to determine if pt will require surgery Review Status In Process Please Provide Date Initial DC 08/03/19 Assessment Was Performed Next Review Type Continued Stay Review
[2019-08-03] MEDS: MORPHINE 2 MG/ML INJ IV ×2 (16:41→20:38)
[2019-08-03 18:48] LABS: Alanine Aminotransferase 22 IU/L (21-72); Albumin 2.8 g/dL (3.5-5.0); Alkaline Phosphatase 79 U/L (38-126); Aspartate Aminotransferase 23 IU/L (17-59); BUN Creatinine Ratio 16.3 (6-22); Bilirubin Total 0.8 mg/dL (0.2-1.3); Blood Urea Nitrogen 13 mg/dL (9-20); Calcium 7.7 mg/dL (8.4-10.2); Carbon Dioxide 29 mmol/L (22-32); Chloride 101 mmol/L (98-107); Estimated Glomerular Filt Rate > 60.0 mL/min (>60); Globulin 2.8 g/dL (1.7-4.1); Glucose 120 mg/dL (80-110); HEMOLYSIS < 15 (0-50); Potassium 3.6 mmol/L (3.4-5.1); Sodium 132 mmol/L (137-145); Total Protein 5.6 g/dL (6.3-8.2)
[2019-08-03] MEDS: ACETAMINOPHEN SUSP 650 MG/20.3 ML UDC PO (22:56)
[2019-08-03] MEDS: LACTATED RINGERS 1,000 ML 125 ML IV (22:57)
[2019-08-03] MEDS: LACTATED RINGERS 500 ML 1000 ML IV (23:00)
[2019-08-04 00:32] VITALS: TEMP 37.3
--- NOTE | 2019-08-04 00:43 | PC.NURSE ---
shift summary- Pt denies nausea this shift, BT+. rates pain 7-8/10, medicated with morphine 2mg IVP, effective. Temps trending up from 99.4-100.3-100.6, new orders for Tylenol 650 elixir Q-6hr PRN. Pt urine is dark, mouth dry, and c/o of dizziness when up to BR, new orders; LR 500ml bolus, then LR @ 125 to LFA. Pt tachy x2 with HR 91 x2. NPO status. 95%RA, LS clear. Pt ambulated in hallway. Bed alarm on and call light in reach.
[2019-08-04 03:13] VITALS: BP 109/47; PULSE 76; RESP 19; TEMP 36.9; O2SAT 93
[2019-08-04] MEDS: LACTATED RINGERS 1,000 ML 125 ML IV ×2 (03:33→17:39)
[2019-08-04] MEDS: MORPHINE 2 MG/ML INJ IV ×3 (03:41→22:28)
[2019-08-04] MEDS: PIPERACILLIN-TAZO 3.375 GM/50 ML FROZ.PIGGY IV ×4 (05:15→22:31)
[2019-08-04 05:42] LABS: Add Manual Diff / Slide Review NO; Basophils Absolute Auto 100 /uL (0-100); Basophils Percent Auto 1.2 % (0-2); Eosinophils Absolute Auto 0 /uL (0-450); Eosinophils Percent Auto 0.4 % (2-4); Hematocrit 33.6 % (41-53); Hemoglobin 11.4 g/dL (13.5-17.5); Lymphocytes Absolute Auto 500 /uL (1100-4500); Lymphocytes Percent Auto 5.7 % (25-40); Mean Corpuscular Hemoglobin 32.3 PG (26-34); Mean Corpuscular Volume 95.2 fL (80-100); Monocytes Absolute Auto 600 /uL (0-900); Monocytes Percent Auto 7.5 % (3-14); Neutrophils Absolute Auto 7200 /uL (1500-7000); Neutrophils Percent Auto 85.2 % (50-75); Platelet Count 200 X10^3/uL (150-400); Red Blood Cell Count 3.53 X10^6/uL (4.5-5.9); White Blood Cell Count 8.5 X10^3/uL (4.5-11.0)
[2019-08-04 06:09] LABS: BUN Creatinine Ratio 11.1 (6-22); Blood Urea Nitrogen 10 mg/dL (9-20); Calcium 7.9 mg/dL (8.4-10.2); Carbon Dioxide 28 mmol/L (22-32); Chloride 102 mmol/L (98-107); Estimated Glomerular Filt Rate > 60.0 mL/min (>60); Glucose 83 mg/dL (80-110); HEMOLYSIS < 15 (0-50); Magnesium 1.9 mg/dL (1.6-2.3); Potassium 3.3 mmol/L (3.4-5.1); Sodium 135 mmol/L (137-145)
[2019-08-04 08:00] VITALS: BP 112/54; PULSE 85; RESP 18; TEMP 37.3; O2SAT 92
[2019-08-04] MEDS: MAGNESIUM OXIDE 400 MG TABLET PO (09:23)
[2019-08-04] MEDS: CYANOCOBALAMIN (VITAMIN B-12) 500 MCG TABLET PO (09:23)
[2019-08-04] MEDS: VITAMIN B COMPLEX 1 CAPSULE 1 CAP PO (09:23)
[2019-08-04] MEDS: POTASSIUM CHLORIDE 40 MEQ in SODIUM CHLORIDE 0.9% 500 ML 130 ML IV (09:23)
[2019-08-04] MEDS: ENOXAPARIN 40 MG/0.4 ML SYRINGE SUBCUT (09:23)
[2019-08-04] MEDS: CHOLECALCIFEROL (VITAMIN D3) 1,000 UNIT TABLET 1000 UNIT PO (09:23)
[2019-08-04] MEDS: TAMSULOSIN 0.4 MG CAPSULE PO (09:23)
[2019-08-04 12:00] VITALS: BP 115/54; PULSE 74; RESP 16; TEMP 37.5; O2SAT 97
--- NOTE | 2019-08-04 12:36 | P.PN_ITS ---
Subjective Subjective Date Patient Seen: 08/04/19 Time Patient Seen: 07:37 Interval history: Patient less painful in the right abdomen. Really not having much bowel function however. Feels distended and having some crampy mid abdominal pain. Exam Vital Signs (past 8 hours): - 08/04/19 08:00 08/04/19 12:00 Temperature 99.2 F 99.5 F Pulse Rate 85 74 Respiratory Rate 18 16 Blood Pressure 112/54 L 115/54 L Pulse Oximetry 92 97 Oxygen Delivery Method Room Air Oxygen Flow Rate 0 Narrative Exam Narrative: Lungs are clear. Heart regular rate and rhythm without murmur gallop. Abdomen is distended soft. Not really tender. Hyperactive bowel sounds normal pitched. No hernia appreciated. Objective Labs Result Diagrams: 08/04/19 05:25 08/04/19 05:25 Labs: Laboratory Results - last 24 hr 08/03/19 08/04/19 08/04/19 Unknown 05:25 05:25 WBC 8.5 RBC 3.53 L Hgb 11.4 L Hct 33.6 L MCV 95.2 MCH 32.3 MCHC 34.0 RDW 13.0 Plt Count 200 Neut % (Auto) 85.2 H Lymph % (Auto) 5.7 L [place] % (Auto) 7.5 Eos % (Auto) 0.4 L Baso % (Auto) 1.2 Neut # (Auto) 7200 H Lymph # (Auto) 500 L [place] # (Auto) 600 Eos # (Auto) 0 Baso # (Auto) 100 Sodium 132 L 135 L Potassium 3.6 3.3 L Chloride 101 102 Carbon Dioxide 29 28 BUN 13 10 Creatinine 0.80 0.90 Estimated GFR > 60.0 > 60.0 BUN/Creatinine Ratio 16.3 11.1 Glucose 120 H 83 Calcium 7.7 L 7.9 L Magnesium 1.9 Total Bilirubin 0.8 AST 23 ALT 22 Alkaline Phosphatase 79 Total Protein 5.6 L Albumin 2.8 L Globulin 2.8 Albumin/Globulin Ratio 1.0 Assessment & Plan Assessment & Plan narrative: Patient is hypokalemic. Potassium ordered. Will keep him NPO due to his distention. X-rays in the morning along with repeat labs. His white blood cell count continues to normalized though he still has or preponderance of segs. He was febrile last night but responded to Tylenol and is afebrile today. We will consider switching his antibiotics slightly if improvement is not continue. Quality VTE Deep Vein Thrombosis/Pulmonary Embolism Present on Admission: No
--- NOTE | 2019-08-04 15:33 | PC.NURSE ---
Pt given morphine 2mg iv x 1, he was able to get some rest. Had potassium rider infusing this morning and is now finished. Pt getting zosyn and infused around 1345. PT up and ambulating in halls. He is passing gas and bt are present. Pt had a liquid bm. Visiting with his family now.
[2019-08-04 15:54] VITALS: BP 112/60; PULSE 81; RESP 18; TEMP 37.3; O2SAT 97
[2019-08-04 19:22] VITALS: BP 126/53; PULSE 75; RESP 18; TEMP 37.4; O2SAT 96
[2019-08-04] MEDS: DEXTROSE 5%-NS W/KCL 20MEQ 1,000 ML 100 MEQ IV (21:04)
--- NOTE | 2019-08-04 23:43 | PC.NURSE ---
Addendum entered by Shabana Medrano R.N. 08/05/19 00:04: CBG checks r/t NPO status. Original Note: shift summary- Placed pt on Q-6hr CBG, 1800 CBG-77, notified dr paul, new orders D5NS+20KCL@ 100, also NO ice chips. Pt ambulated hallways with x3. denies nausea this shift. small loose and formed BM this shift. BRP and urinal. Bed alarm on.
[2019-08-05] VITALS (7 sets, daily range): BP systolic 122–142; BP diastolic 55–96; PULSE 67–81; RESP 16–18; TEMP 36.8–37.4; O2SAT 92–98
[2019-08-05 05:22] LABS: Add Manual Diff / Slide Review NO; Basophils Absolute Auto 0 /uL (0-100); Basophils Percent Auto 0.1 % (0-2); Eosinophils Absolute Auto 100 /uL (0-450); Hematocrit 33.6 % (41-53); Hemoglobin 11.4 g/dL (13.5-17.5); Lymphocytes Absolute Auto 500 /uL (1100-4500); Lymphocytes Percent Auto 4.8 % (25-40); Mean Corpuscular Hemoglobin 32.4 PG (26-34); Mean Corpuscular Volume 95.2 fL (80-100); Monocytes Absolute Auto 800 /uL (0-900); Monocytes Percent Auto 8.5 % (3-14); Neutrophils Absolute Auto 8200 /uL (1500-7000); Neutrophils Percent Auto 85.6 % (50-75); Platelet Count 249 X10^3/uL (150-400); Red Blood Cell Count 3.53 X10^6/uL (4.5-5.9); Red Cell Distribution Width 13.2 % (11.6-14.8); White Blood Cell Count 9.6 X10^3/uL (4.5-11.0)
[2019-08-05 05:28] LABS: BUN Creatinine Ratio 13.3 (6-22); Blood Urea Nitrogen 12 mg/dL (9-20); Calcium 8.1 mg/dL (8.4-10.2); Carbon Dioxide 28 mmol/L (22-32); Chloride 105 mmol/L (98-107); Estimated Glomerular Filt Rate > 60.0 mL/min (>60); Glucose 114 mg/dL (80-110); HEMOLYSIS < 15 (0-50); Potassium 3.6 mmol/L (3.4-5.1); Sodium 139 mmol/L (137-145)
[2019-08-05] MEDS: PIPERACILLIN-TAZO 3.375 GM/50 ML FROZ.PIGGY IV ×4 (05:36→23:27)
[2019-08-05 05:47] LABS: Magnesium 1.9 mg/dL (1.6-2.3)
--- NOTE | 2019-08-05 07:00 | DI.RAD.S_ITS ---
PROCEDURE: XR ACUTE ABDOMEN SERIES INDICATIONS: r/o obstruction TECHNIQUE: One view chest and two views of the abdomen were acquired. COMPARISON: [facility], CR, XR CHEST 1V, 08/02/2019, 10:42. FINDINGS: Surgical changes and devices: Surgical clips are noted in the lower midline pelvis. Chest: Interval development of bilateral pleural effusions and mild diffuse interstitial prominence. No focal consolidations. Mild streaky bibasilar opacities. No pneumothorax. No pneumoperitoneum. Abdomen: Bowel gas pattern is nonobstructive. No suspicious calcifications. Visualized solid organ contours appear normal. Bones: No suspicious bony lesions. IMPRESSION: 1. Nonobstructive bowel gas pattern. 2. Interval development of bilateral pleural effusions with diffuse interstitial prominence. Findings may represent an early pulmonary edema. Infectious/inflammatory process not excluded if clinically appropriate. No focal consolidations. Dictated by: Jeremie Puri M.D. on 08/05/2019 at 8:24 Approved by: Jeremie Puri M.D. on 08/05/2019 at 8:26
[2019-08-05] MEDS: DEXTROSE 5%-NS W/KCL 20MEQ 1,000 ML 100 MEQ IV ×2 (07:50→17:00)
[2019-08-05] MEDS: ENOXAPARIN 40 MG/0.4 ML SYRINGE SUBCUT (09:13)
[2019-08-05] MEDS: TAMSULOSIN 0.4 MG CAPSULE PO (09:13)
[2019-08-05] MEDS: SODIUM CHLORIDE 0.9% FLUSH 10 ML IV (10:29)
--- NOTE | 2019-08-05 20:13 | P.PN_ITS ---
Subjective Subjective Date Patient Seen: 08/05/19 Time Patient Seen: 20:14 Interval history: Patient is a gentleman with a perforated appendix and phlegmon being treated with IV antibiotics. He feels much better today. He has been able to pass gas and had multiple bowel movements including 1 large 1. He feels like things are moving through. Exam Vital Signs (past 8 hours): - 08/05/19 15:25 Temperature 98.6 F Pulse Rate 67 Respiratory Rate 18 Blood Pressure 141/70 H Pulse Oximetry 96 Oxygen Delivery Method Room Air Oxygen Flow Rate 0 Narrative Exam Narrative: Abdomen is mildly distended. Much improved from yesterday. It is soft and there is no tenderness. No hernias appreciated. Objective Imaging Abdominal x-ray: My impression: Gas has proceeded into the transverse colon. Small-bowel has scattered gas but it is not dilated. Labs Result Diagrams: 08/05/19 05:05 08/05/19 05:05 Labs: Laboratory Results - last 24 hr 08/05/19 08/05/19 08/05/19 05:05 05:05 05:05 WBC 9.6 RBC 3.53 L Hgb 11.4 L Hct 33.6 L MCV 95.2 MCH 32.4 MCHC 34.0 RDW 13.2 Plt Count 249 Neut % (Auto) 85.6 H Lymph % (Auto) 4.8 L Phillips % (Auto) 8.5 Eos % (Auto) 1.0 L Baso % (Auto) 0.1 Neut # (Auto) 8200 H Lymph # (Auto) 500 L Phillips # (Auto) 800 Eos # (Auto) 100 Baso # (Auto) 0 Sodium 139 Potassium 3.6 Chloride 105 Carbon Dioxide 28 BUN 12 Creatinine 0.90 Estimated GFR > 60.0 BUN/Creatinine Ratio 13.3 Glucose 114 H Calcium 8.1 L Magnesium 1.9 Assessment & Plan Assessment & Plan narrative: Patient beginning to open up and has improved. White count remains normal but he still has preponderance of segs. That may not change. We will start to advance his diet again. Ordered clear liquids for the morning any can have juice tonight. Quality VTE Deep Vein Thrombosis/Pulmonary Embolism Present on Admission: No
[2019-08-06] MEDS: DEXTROSE 5%-NS W/KCL 20MEQ 1,000 ML 100 MEQ IV (04:10)
[2019-08-06 05:05] VITALS: BP 136/67; PULSE 69; RESP 16; TEMP 37.2; O2SAT 96
[2019-08-06 05:35] LABS: Add Manual Diff / Slide Review NO; Basophils Absolute Auto 0 /uL (0-100); Basophils Percent Auto 0.5 % (0-2); Eosinophils Absolute Auto 100 /uL (0-450); Eosinophils Percent Auto 1.6 % (2-4); Hematocrit 33.2 % (41-53); Hemoglobin 11.2 g/dL (13.5-17.5); Lymphocytes Absolute Auto 600 /uL (1100-4500); Lymphocytes Percent Auto 8.2 % (25-40); Mean Corpuscular HGB Conc 33.8 % (30-36); Mean Corpuscular Hemoglobin 32.3 PG (26-34); Mean Corpuscular Volume 95.5 fL (80-100); Monocytes Absolute Auto 900 /uL (0-900); Monocytes Percent Auto 11.8 % (3-14); Neutrophils Absolute Auto 5700 /uL (1500-7000); Neutrophils Percent Auto 77.9 % (50-75); Platelet Count 254 X10^3/uL (150-400); Red Blood Cell Count 3.48 X10^6/uL (4.5-5.9); Red Cell Distribution Width 13.6 % (11.6-14.8); White Blood Cell Count 7.4 X10^3/uL (4.5-11.0)
[2019-08-06] MEDS: PIPERACILLIN-TAZO 3.375 GM/50 ML FROZ.PIGGY IV ×3 (05:36→18:27)
[2019-08-06 05:45] LABS: BUN Creatinine Ratio 12.9 (6-22); Blood Urea Nitrogen 9 mg/dL (9-20); Calcium 7.8 mg/dL (8.4-10.2); Carbon Dioxide 27 mmol/L (22-32); Chloride 108 mmol/L (98-107); Estimated Glomerular Filt Rate > 60.0 mL/min (>60); Glucose 122 mg/dL (80-110); HEMOLYSIS < 15 (0-50); Magnesium 1.8 mg/dL (1.6-2.3); Potassium 3.3 mmol/L (3.4-5.1); Sodium 140 mmol/L (137-145)
[2019-08-06 07:35] VITALS: BP 126/69; PULSE 63; RESP 16; TEMP 37.1; O2SAT 91
[2019-08-06] MEDS: DEXTROSE 5%-0.45NS W/KCL 40MEQ 1,000 ML 80 MEQ IV ×2 (08:03→23:32)
[2019-08-06] MEDS: MAGNESIUM SULFATE 2 GM/50 ML PIGGYBACK IV (08:18)
[2019-08-06] MEDS: TAMSULOSIN 0.4 MG CAPSULE PO (09:13)
[2019-08-06] MEDS: POTASSIUM CHLORIDE 20 MEQ TAB 40 MEQ PO (09:14)
[2019-08-06] MEDS: ENOXAPARIN 40 MG/0.4 ML SYRINGE SUBCUT (09:15)
--- NOTE | 2019-08-06 09:46 | P.PN_ITS ---
Subjective Subjective Date Patient Seen: 08/06/19 Time Patient Seen: 09:46 Interval history: No acute events overnight. The patient denies pain, nausea, or subjective fevers. He is having intermittent loose stool and passing flatus. He described an incident over the weekend where he had severe abdominal pain after trying to eat a turkey sandwich. He is interested in eating today, although he would like to take it slow and start with clear liquids. Exam Vital Signs (past 8 hours): - 08/06/19 05:05 08/06/19 07:35 Temperature 98.9 F 98.8 F Pulse Rate 69 63 Respiratory Rate 16 16 Blood Pressure 136/67 126/69 Pulse Oximetry 96 91 Oxygen Delivery Method Room Air Oxygen Flow Rate 0 Narrative Exam Narrative: GENERAL: Well groomed and cooperative. Appears stated age. Answers questions promptly and appropriately. Vital signs noted. HENT: Normocephalic, atraumatic. Hearing intact. Oral mucosa is pink and moist. EYES: Conjunctiva pink, sclera white, no periorbital swelling. CARDIOVASCULAR: Regular rate. No pedal edema. RESPIRATORY: Normal respiratory rate, breathing comfortably on room air. GASTROINTESTINAL: Abdomen soft, completely nontender on light and deep palpation, slightly distended GENITALURINARY: No flank tenderness. MUSCULOSKELETAL: Equal tone and mass bilaterally. SKIN: Warm, dry, soft, appropriate color for ethnicity. No other lesions, ra shes, or wounds. NEURO: Alert and Oriented X 3. No gross sensory deficits, or cognitive issues. PSYCH: Appropriate affect and mood. Objective Labs Result Diagrams: 08/06/19 05:22 08/06/19 05:22 Labs: Laboratory Results - last 24 hr 08/06/19 08/06/19 05:22 05:22 WBC 7.4 RBC 3.48 L Hgb 11.2 L Hct 33.2 L MCV 95.5 MCH 32.3 MCHC 33.8 RDW 13.6 Plt Count 254 Neut % (Auto) 77.9 H Lymph % (Auto) 8.2 L Bartholomew % (Auto) 11.8 Eos % (Auto) 1.6 L Baso % (Auto) 0.5 Neut # (Auto) 5700 Lymph # (Auto) 600 L Bartholomew # (Auto) 900 Eos # (Auto) 100 Baso # (Auto) 0 Sodium 140 Potassium 3.3 L Chloride 108 H Carbon Dioxide 27 BUN 9 Creatinine 0.70 Estimated GFR > 60.0 BUN/Creatinine Ratio 12.9 Glucose 122 H Calcium 7.8 L Magnesium 1.8 Assessment & Plan Assessment and plan (1) Appendicitis with perforation: Problem details: I reviewed with the patient and his the management of his perforated appendicitis with associated phlegmon. He continues to improve on antibiotics, and is currently nontender and has a normalizing white count. He had a tough time with diet advancement over the weekend, but feels he is ready to try again at this point. Interval events: WBC coming down, exam improved, pt now feels hungry. Plan: IV Zosyn q.6h Advance diet as tolerated, gluten free per patient request IV fluid at 80/hr P.o. and IV pain meds as needed Ambulate as tolerated; 20 minutes TID Repeat labs daily Replete electrolytes as needed to keep K greater than 4 and Mag greater than 2 If he improves on antibiotics, we will plan on sending him home on a 2 week course of oral antibiotics once his pain is gone and WBC is normal If he does not improve, we will go ahead to the operating room Current visit: Yes Status: Acute Quality VTE Deep Vein Thrombosis/Pulmonary Embolism Present on Admission: No
--- NOTE | 2019-08-06 10:05 | PC.NURSE ---
Addendum entered by Sridevi Motley R.N. 08/06/19 13:58: GI - pt faviola tea and the non dairy yogurt brought in by family. Original Note: AM NOTE - pt is alert, up before breakfast, ambul hallway w/spouse at side, no complaint nausea, abd pain, does describe some cramping discomfort prior to loose stool, declines narcotic, + bt, started with clear liq this am, disliked juice last jose m, felt incr cramping, given tea this am and applesauce to take with his potassium, discussed food choices and will adv, pt is limited dairy and gluten free, spouse will pickle pumper pt favorite non dairy yogurt, bs clear, dim bases, brought in IS and pt initially reached 1000, later states able to reach goal 2500.
[2019-08-06 11:00] VITALS: BP 128/67; PULSE 68; RESP 16; TEMP 37.1; O2SAT 95
[2019-08-06 15:52] VITALS: BP 127/73; PULSE 82; RESP 18; TEMP 37.7; O2SAT 96
--- NOTE | 2019-08-06 18:03 | CM.DPC ---
Addendum entered by NOAH Harmon 08/07/19 10:06: Nutrition consult requested this morning in multidisciplinary rounds, pt will be seen by dietary before DC POLINA Original Note: DCP Continued: EMR reviewed: Patient is a 74 yr old male admitted for Acute Appendicitis. CM/RN met with patient and his Rashaun (also know as martha) at bed side and explained CM role. Patient stated he was feeling better and was just starting to be able to eat again. Patients expressed concerns over patients ability to eat. Patients asked if they could have a meeting with a landscape photographer to help with a dietary plan when patient d/c. CM will pass on to tomorrows CM/ SW to check on nutrition consult order. Plan: D/C home with when medically stable. Adelia Ohara RN.
[2019-08-06 20:00] VITALS: BP 132/78; PULSE 70; RESP 18; TEMP 37.4; O2SAT 98
[2019-08-06 23:20] VITALS: BP 136/65; PULSE 67; RESP 16; TEMP 37.2; O2SAT 97
[2019-08-07] MEDS: PIPERACILLIN-TAZO 3.375 GM/50 ML FROZ.PIGGY IV ×2 (00:54→06:09)
[2019-08-07 04:00] VITALS: BP 144/97; PULSE 89; TEMP 36.6; O2SAT 99
[2019-08-07 06:00] LABS: Add Manual Diff / Slide Review NO; Basophils Absolute Auto 0 /uL (0-100); Basophils Percent Auto 0.4 % (0-2); Eosinophils Absolute Auto 300 /uL (0-450); Hematocrit 36.9 % (41-53); Hemoglobin 12.6 g/dL (13.5-17.5); Lymphocytes Absolute Auto 800 /uL (1100-4500); Lymphocytes Percent Auto 10.2 % (25-40); Mean Corpuscular HGB Conc 34.1 % (30-36); Mean Corpuscular Hemoglobin 32.1 PG (26-34); Mean Corpuscular Volume 94.3 fL (80-100); Monocytes Absolute Auto 1000 /uL (0-900); Monocytes Percent Auto 12.3 % (3-14); Neutrophils Absolute Auto 5800 /uL (1500-7000); Neutrophils Percent Auto 73.1 % (50-75); Platelet Count 264 X10^3/uL (150-400); Red Blood Cell Count 3.92 X10^6/uL (4.5-5.9); Red Cell Distribution Width 13.3 % (11.6-14.8); White Blood Cell Count 7.9 X10^3/uL (4.5-11.0)
[2019-08-07 06:05] LABS: BUN Creatinine Ratio 8.3 (6-22); Blood Urea Nitrogen 5 mg/dL (9-20); Carbon Dioxide 25 mmol/L (22-32); Chloride 105 mmol/L (98-107); Estimated Glomerular Filt Rate > 60.0 mL/min (>60); Glucose 109 mg/dL (80-110); HEMOLYSIS < 15 (0-50); Potassium 3.7 mmol/L (3.4-5.1); Sodium 136 mmol/L (137-145)
[2019-08-07 07:45] VITALS: BP 141/69; PULSE 62; RESP 17; TEMP 36.8; O2SAT 97
--- NOTE | 2019-08-07 07:55 | P.DS_ITS ---
History of Present Illness History of Present Illness Chief complaint: stomach cramps nausea x3 days Narrative: This is a 74-year-old man with history of lymphoma treated many years ago, BPH s/p Urolift, who comes into the ER with a 3 day history of abdominal pain, now focal in the right lower quadrant. Initially he thought he had eaten something bad, which caused his abdominal pain. He has a history of inter mittent abdominal pains, and a high sensitivity to gluten and other types of foods. He does not have a specific GI diagnosis relative to these things. With history kept him from coming into the ER when his pain initially started on Monday night. He came in today because his pain is not relenting, and is quite severe. He had a CT scan of the abdomen and pelvis which showed evidence of a perforated appendicitis with a local phlegmon, a few locules of extraluminal air, and some appendiculoliths present. There is no abscess on the CT scan. He has no appetite at this point. He has had a colonoscopy in the past. His last colonoscopy was in 2013, and he was told he had polyps and needed a repeat colonoscopy in 2019. His primary doctor is Dr. Yi. He believes it has been about 1 year since he saw Dr. Yi. He says he is otherwise well and healthy. He denies any dysuria. He has had good improvement in his BPH symptoms after his urolift. He has a good exercise tolerance and denies any chronic health complaints. His sodium was slightly low on admission and normalized with fluid replacement and dietary advancement. It was not due to any identifiable diagnosis. ROS: Thirteen system review is negative other than as mentioned below and in HPI. PE: GENERAL: Well groomed and cooperative. Appears stated age. Answers questions promptly and appropriately. Vital signs noted. HENT: Normocephalic, atraumatic. Hearing intact. Oral mucosa is pink and moist. EYES: Conjunctiva pink, sclera white, no periorbital swelling. CARDIOVASCULAR: Regular rate. No pedal edema. RESPIRATORY: Normal respiratory rate, breathing comfortably on room air. GASTROINTESTINAL: Abdomen soft and non-distended; markedly tender focally in right lower quadrant; negative Rovsing sign, no generalized peritonitis GENITALURINARY: No flank tenderness. MUSCULOSKELETAL: Equal tone and mass bilaterally. SKIN: Warm, dry, soft, appropriate color for ethnicity. No other lesions, rashes, or wounds. NEURO: Alert and Oriented X 3. Good coordination. No ataxia, or sensory deficits, or cognitive issues. PSYCH: Appropriate affect and mood. Discharge Providers Provider Date of admission: 08/02/19 13:36 Discharge Date: 08/07/19 Primary care physician: Niranjan Yi MD Discharge provider: Joselin Jj MD Exam Vital Signs (past 8 hours): - 08/07/19 04:00 Temperature 97.9 F Pulse Rate 89 Blood Pressure 144/97 H Pulse Oximetry 99 Oxygen Delivery Method Room Air Oxygen Flow Rate 0 Objective Labs Result Diagrams: 08/07/19 05:40 08/07/19 05:40 Labs: Laboratory Results - last 24 hr 08/07/19 08/07/19 05:40 05:40 WBC 7.9 RBC 3.92 L Hgb 12.6 L Hct 36.9 L MCV 94.3 MCH 32.1 MCHC 34.1 RDW 13.3 Plt Count 264 Neut % (Auto) 73.1 Lymph % (Auto) 10.2 L [place] % (Auto) 12.3 Eos % (Auto) 4.0 Baso % (Auto) 0.4 Neut # (Auto) 5800 Lymph # (Auto) 800 L [place] # (Auto) 1000 H Eos # (Auto) 300 Baso # (Auto) 0 Sodium 136 L Potassium 3.7 Chloride 105 Carbon Dioxide 25 BUN 5 L Creatinine 0.60 L Estimated GFR > 60.0 BUN/Creatinine Ratio 8.3 Glucose 109 Calcium 8.0 L Magnesium 2.0 Discharge Plan Discharge Plan Patient Disposition: Home Discharge comment: The patient has been treated with IV antibiotics for perforated appendicitis. I would like him to come in for a follow-up appointment the week of August. He should continue taking his prescribed antibiotic at home until it is gone. He should call our office or come into the ER if he has worsening abdominal pain, fevers, nausea/vomiting, or other concerning symptoms. He should continue taking his probiotic at home. Discharge Med Rec/Prescriptions Prescriptions: New amoxicillin-pot clavulanate [Augmentin] 875-125 mg tablet 1 tab PO Q12H Qty: 18 RF: 0 Continued tamsulosin 0.4 mg capsule 0.4 mg PO DAILY Qty: 90 RF: 3 evening primrose oil 500 mg Capsule 500 mg PO DAILY RF: 0 cyanocobalamin (vitamin B-12) [Vitamin B-12] 500 mcg Lozenge 500 mcg PO DAILY RF: 0 Emergen-C 1,000 mg Powder Effervescent In Packet 1,000 mg PO DAILY RF: 0 Hyaluronic Acid (chond-collgn) 1 dose PO DAILY RF: 0 Vitamin B Capsule 1 cap PO DAILY RF: 0 Vitamin D3 1 cap PO DAILY RF: 0 bilberry 1 cap PO DAILY RF: 0 chromium chloride 1 dose PO DAILY RF: 0 lutein 1 tab PO DAILY RF: 0 magnesium 1 tab PO DAILY RF: 0 vitamin A 1 cap PO DAILY RF: 0 Follow up/Referrals: Niranjan Yi MD [Primary Care Provider] - Joselin Jj MD [Physician] - 08/22/19 10:30 am (Need to see patient in my office the August appt:08/22 @ 10:[address] jj-please check in 15minutes prior to your scheduled appointment) Provider Discharge Instructions Diet: Diet as Tolerated Activity: Activity as tolerated. No specific activity restriction Skin/Wound/Dressing Care Report to your healthcare provider any signs of infection, such as:: chills, fever, night sweats and increased pain Visit Report/Discharge Packet Instructions: DI for Appendicitis -- Adult Discharge Data Primary Care Provider: Niranjan Yi Discharges patient from system. Discharge Date/Time: 08/07/19 11:22 Quality VTE Deep Vein Thrombosis/Pulmonary Embolism Present on Admission: No
[2019-08-07] MEDS: MAGNESIUM OXIDE 400 MG TABLET PO (08:47)
[2019-08-07] MEDS: CYANOCOBALAMIN (VITAMIN B-12) 500 MCG TABLET PO (08:47)
[2019-08-07] MEDS: ENOXAPARIN 40 MG/0.4 ML SYRINGE SUBCUT (08:47)
[2019-08-07] MEDS: CHOLECALCIFEROL (VITAMIN D3) 1,000 UNIT TABLET 1000 UNIT PO (08:47)
[2019-08-07] MEDS: VITAMIN B COMPLEX 1 CAPSULE 1 CAP PO (08:47)
[2019-08-07] MEDS: TAMSULOSIN 0.4 MG CAPSULE PO (08:47)
--- NOTE | 2019-08-07 10:23 | PC.NURSE ---
Pt is going to be discharged today at 1100. He denies pain or discomfort. IVF heplocked. brought pt breakfast this am and he ate well. Abdomen soft and nontender, bt+x4.
== END 2019-08-07 11:22 | disposition home or self-care (01) | DRG 373 ==
LOC: ED 09:09 → AC 13:37
PROVIDERS: Specialist; Admitting Provider Surgery; Emergency Provider Emergency Medicine; Family Provider Internal Medicine; PCP Internal Medicine; Visit Provider Surgery
DX: K35.32 Acute appendicitis with perforation, localized peritonitis, and gangrene, without abscess (principal); E87.6 Hypokalemia
CPT/HCPCS: 36415; 71045; 74022; 74177; 80048; 80053; 81003; 81015; 82550; 82962; 83690; 83735; 84484; 85025; 96361; 96365; 96375; 99222; 99231; 99232; 99238; 99283; 99284; J1650; J2270; J2405; J2543; J3480; Q9967

== ENCOUNTER 2019-09-20 07:32 | Day surgery (SDC) | payer OTHER, SELFPAY ==
[2019-08-02 14:28] VITALS: BMI 25.0
[2019-09-20] VITALS (11 sets, daily range): BP systolic 96–150; BP diastolic 56–88; PULSE 57–101; RESP 10–16; TEMP 36.1–36.7; O2SAT 96–100
--- NOTE | 2019-09-20 | PATH_ITS ---
[facility] Accession Number: [id number] . 01 Material submitted: . PART A: colon - PERIAPPENDICEAL MASS BIOPSY X4 PART B: colon - FLAT POLYP AT 45 CM . 02 Diagnosis: A. Periappendiceal Mass, Biopsy: Superficial portions of colorectal mucosa with mild active inflammation and a prominent lymphoid infiltrate. Hematopathology consultation requested; those results will be reported as an addendum. Negative for epithelial dysplasia or malignancy. . B. Flat Polyp at 45 cm: Tubular adenoma. MRV 09/24/2019 1522 Local . 02 Comment: Part A: Slides eviewed by Dr. Cory Campbell. . 02 Electronically signed: . Mandy Fernando MD, Pathologist NPI- [id number] . 01 Gross description: . Part A: PERIAPPENDICEAL MASS BIOPSY X4: Received in formalin are multiple fragment(s) of wolfe, soft tissue measuring 0.1 x 0.1 x 0.1 cm to 0.3 x 0.2 x 0.2 cm submitted entirely in 1 cassette(s) Part B: FLAT POLYP AT 45 CM: Received in formalin is 1 fragment(s) of wolfe, soft tissue measuring 0.1 x 0.1 x 0.1 cm submitted entirely in 1 cassette(s) /[facility] 09/20/2019 1943 Local . 02 Pathologist provided ICD-10: Z12.11, K63.5 . 02 CPT . 181726, 607172 Performed at: 01 [facility] [address], [place], [place] [id number] MD Grzegorz Montelongo MD Phone: [phone] Performed at: 02 [facility] [address] [place] [id number] MD Carolyn Hitchcock MD Phone: [phone]
[2019-09-20] MEDS: SODIUM CHLORIDE 0.9% 1,000 ML 200 ML IV (08:12)
--- NOTE | 2019-09-20 08:30 | PM.PREOP ---
Pre-operative Note Interval Note History & Physical reviewed/Exam performed by Physician: No Changes to H&P: No ASA Class (for procedural sedation): II
--- NOTE | 2019-09-20 09:14 | PM.OP.ENDO ---
Operative Date/Time/Diagnoses Date of procedure: 09/20/19 Time of procedure: 09:14 Pre-op diagnosis: Personal history of colon polyps, recent acute appendicitis treated with antibiotics, here for surveillance colonoscopy Post-op diagnosis: other (Cecal mass) Procedure & Clinicians Study performed: Colonoscopy, biopsies of cecal mass with cold forceps, polypectomy at 45 cm with cold forceps Same procedure as scheduled: Yes Indications: Recent perforated appendicitis, history of colon polyps Surgeon: Joselin Jj Procedure Notes SCOAP/Timeout: Performed Procedure in detail: The patient was brought to the room and placed in left lateral decubitus position with all bony prominences padded. A time-out was performed and then the patient was given procedural sedation starting with 4 mg of Versed and 100 mcg of fentanyl. Vitals were monitored throughout the procedure and remained stable. Once adequately sedated the procedure was begun. A rectal exam was performed revealing no abnormalities. The colonoscope was then introduced to the rectum and advanced to the cecum in the usual fashion. The colon was very tortuous and reaching the cecum required many advance maneuvers and pressure applied to the abdomen.The cecum was identified by the appendiceal orifice, the mucosal try fold, and the ileocecal valve. There was a hypercellular mass at the base of the appendix, of which multiple biopsies were taken. It was approximately 2 x 3 cm and surrounding the appendix. It looks very suspicious for cancer. The scope was then retracted while rotating side to side and examining each mucosal fold. A 2 mm flat polyp was seen at 45 cm and was removed with cold forceps. At the conclusion procedure retroflexion was performed and small grade 1-2 internal hemorrhoids without stigmata of bleeding were seen. The scope was then withdrawn from the rectum the procedure was concluded. The patient tolerated the procedure well was transferred to the PACU in stable condition. 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
[2019-09-20] MEDS: MIDAZOLAM 5 MG/5 ML VIAL IV (09:15)
[2019-09-20] MEDS: fentaNYL 250 MCG/5 ML INJ IV (09:16)
== END 2019-09-20 10:54 | disposition home or self-care (01) ==
PROVIDERS: Family Provider Internal Medicine; PCP Internal Medicine; Visit Provider Surgery
PROC: 0DJD8ZZ Inspection of Lower Intestinal Tract, Via Natural or Artificial Opening Endoscopic (ICD-10-PCS; CPT 45378; principal; 2019-09-20 08:30)
DX: Z12.11 Encounter for screening for malignant neoplasm of colon (principal); Z86.010 Personal history of colon polyps; Z85.72 Personal history of non-Hodgkin lymphomas; Z86.73 Personal history of transient ischemic attack (TIA), and cerebral infarction without residual deficits; Z87.19 Personal history of other diseases of the digestive system; K38.8 Other specified diseases of appendix; K64.0 First degree hemorrhoids; D12.6 Benign neoplasm of colon, unspecified
CPT/HCPCS: 45380; 99152; 99153; J2250; J3010

== ENCOUNTER 2019-11-06 10:01 | Day surgery (SDC) | payer MEDICARE, SELFPAY ==
[2019-08-02 14:28] VITALS: BMI 25.0
[2019-11-06] VITALS (8 sets, daily range): BP systolic 103–139; BP diastolic 59–84; PULSE 57–77; RESP 12–32; TEMP 36.3–37.3; O2SAT 93–100; BMI 18.2
--- NOTE | 2019-11-06 | PATH_ITS ---
[facility] Accession Number: [id number] . 01 Material submitted: . appendix - APPENDIX . 02 Diagnosis: Appendix, Appendectomy: Acute appendicitis. Negative for dysplasia and malignancy. MRV 11/11/2019 1241 Local . 02 Electronically signed: . Carolyn Hitchcock MD, Pathologist NPI- [id number] . 01 Gross description: . Received in formalin, labeled appendix, is an intact appendix (length-9.2 cm, diameter-up to 1.3 cm) with frederick-wolfe smooth shiny serosa and attached mesoappendix (up to 10.8 cm in depth). The resection margin is received stapled. The lumen contains wolfe solid paste-like material. The wall is up to 0.1 cm thick. No nodules, masses, or lesions are identified. The resection margin is inked blue. Section Code: (A1) resection margin en face and three additional fundraising sale representative serial sections; (A2) one-half of the bivalved tip. ([id number]) Additional sections: (A3-A6) remaining appendix. Specimen is now entirely submitted. ([id number]) /I 11/10/20196 Local . 02 Pathologist provided ICD-10: K35.80 . 02 CPT . 693590 Performed at: 01 [facility] [address] [id number] MD Grzegorz Montelongo MD Phone: [phone] Performed at: 02 [facility] [address] [place], [place] [id number] MD Carolyn Hitchcock MD Phone: [phone]
[2019-11-06] MEDS: LACTATED RINGERS 1,000 ML 100 ML IV ×2 (10:26→12:21)
--- NOTE | 2019-11-06 10:31 | PM.HP.1 ---
History of Present Illness History of Present Illness Date Patient Seen: 11/06/19 Time Patient Seen: 10:31 Chief complaint: Lap Appy Poss/open [id number] Narrative: This is a 74-year-old man with history of perforated appendicitis and phlegmon treated with antibiotics several months ago. He had a follow-up colonoscopy which showed some thickened lymphatic tissue around the base of the appendix, but no cancerous mass at the base of the appendix. He is here today for interval appendectomy. Risks and benefits of laparoscopic, possible open appendectomy have been discussed. Since his last visit to see me he has had no other changes other than he has been gaining some weight. He is still below the weight of prior to his appendicitis, but is gradually improving. No other new health problems. He is otherwise doing well. ROS Thirteen system review is otherwise negative other than as mentioned below and in HPI. PE: GENERAL: Well groomed and cooperative. Appears stated age. Answers questions promptly and appropriately. Vital signs noted. HENT: Normocephalic, atraumatic. Hearing intact. Oral mucosa is pink and moist. EYES: Conjunctiva pink, sclera white, no periorbital swelling. CARDIOVASCULAR: Regular rate. No pedal edema. RESPIRATORY: Non-tachypneic, breathing comfortably on room air. GASTROINTESTINAL: Abdomen soft and non-distended GENITALURINARY: No flank tenderness. MUSCULOSKELETAL: Equal tone and mass bilaterally. SKIN: Warm, dry, soft, appropriate color for ethnicity. No other lesions, rashes, or wounds. NEURO: Alert and Oriented X 3. No gross sensory deficits, or cognitive issues. PSYCH: Appropriate affect and mood. Patient History Medical History Acne (Resolved ~1959) Acute appendicitis with rupture (Resolved) BPH loc w urin obs/LUTS (Chronic) Chicken pox (Resolved ~1953) H/O adenomatous polyp of colon (Chronic) Hearing deficit (Chronic) Measles (Resolved) Mumps (Resolved) Non Hodgkin's lymphoma (Chronic 06/20/13) Seasonal allergies (Resolved ~1960) TIA (transient ischemic attack) (Resolved ~2014) Vision disorder (Chronic) Surgical History Anesthesia (Resolved) History of colonoscopy with polypectomy (Acute 09/20/19) History of surgery (Resolved ~1988) History of tonsillectomy (Inactive ~1952) Family & Social History Family History Brother Liver cancer Brother Age: 82 High cholesterol Father Heart disease Mother Heart disease Sister Age: 69 Hypertension Social History: household members spouse Tobacco & Substance use: Smoking Status Former smoker alcohol intake current alcohol intake frequency holiday/special occasion Substance Use Type does not use Meds Home Medications and Allergies Home Medications Medication Instructions Recorded Confirmed Type tamsulosin 0.4 mg capsule 0.4 mg PO DAILY #90 cap 11/16/18 11/06/19 Rx Emergen-C 1,000 mg PO DAILY 08/02/19 11/06/19 History Hyaluronic Acid (chond-collgn) 1 dose PO DAILY 08/02/19 11/06/19 History Vitamin B Capsule 1 cap PO DAILY 08/02/19 11/06/19 History Vitamin D3 1 cap PO DAILY 08/02/19 11/06/19 History bilberry 1 cap PO DAILY 08/02/19 11/06/19 History chromium chloride 1 dose PO DAILY 08/02/19 11/06/19 History cyanocobalamin (vitamin B-12) 500 mcg PO DAILY 08/02/19 11/06/19 History [Vitamin B-12] evening primrose oil 500 mg PO DAILY 08/02/19 11/06/19 History lutein 1 tab PO DAILY 08/02/19 11/06/19 History magnesium 1 tab PO DAILY 08/02/19 11/06/19 History vitamin A 1 cap PO DAILY 08/02/19 11/06/19 History tamsulosin 0.4 mg PO DAILY 09/20/19 11/06/19 History Allergies Allergy/AdvReac Type Severity Reaction Status Date / Time wheat Allergy Intermediate Verified 11/06/19 10:08 No Known Drug Allergies Allergy Unknown Verified 11/06/19 10:08 Exam Vital Signs (past 8 hours): - 11/06/19 10:18 Temperature 99.1 F Pulse Rate 77 Respiratory Rate 15 Blood Pressure 139/84 Pulse Oximetry 100 Oxygen Delivery Method Room Air Assessment & Plan Assessment and plan (1) History of appendicitis: Current visit: Yes Status: Acute (2) BPH loc w urin obs/LUTS: Current visit: No Status: Chronic Assessment & Plan narrative: This is a 74-year-old man here for laparoscopic possible open appendectomy. This is an interval appendectomy after antibiotic treatment of perforated appendicitis with phlegmon. We've discussed the possibility of need for open surgery, need for additional procedures, risk of bleeding, risk of injury to surrounding structures, risk of infection, need for prolonged stay in the hospital, need for subsequent additional surgery, risks of [place] catheter placement. The patient desires to proceed with his surgery. Time Spent With Patient Time with patient: 15-24 minutes Quality VTE Deep Vein Thrombosis/Pulmonary Embolism Present on Admission: No
[2019-11-06] MEDS: PIPERACILLIN-TAZO 3.375 GM/50 ML FROZ.PIGGY IV (10:57)
--- NOTE | 2019-11-06 11:22 | SUR.OPER ---
Supine on padded OR bed, head on pillow, left arm padded and tucked at side, legs uncrossed, safety belt at thigh, tape over blanket over lower legs .
[2019-11-06] MEDS: BUPIVACAINE 0.25% W/ EPI (PF) 10 ML VIAL 30 ML INJ (11:28)
--- NOTE | 2019-11-06 12:52 | PM.OP.1 ---
Operative Date/Time/Diagnoses Date of procedure: 11/06/19 Time of procedure: 12:52 Pre-op diagnosis: History of perforated appendicitis with phlegmon Post-op diagnosis: same Procedure & Clinicians Procedure: Laparoscopic interval appendectomy with oversewn jerzy patch over staple line Same procedure as scheduled: Yes Indications: History of perforated appendicitis with phlegmon Surgeon: Joselin Jj Click Yes if Unassisted: Yes Anesthesia Type: General Operative Notes Findings: Large thickened appendix with intraluminal stones. Chronic phlegmon around the appendix, with a small abscess cavity near the base of the appendix. Specimen(s): other (Appendix) Estimated Blood Loss (mL): 1 Procedure in detail: The patient was brought into the operating room and placed supine on the OR table. Sequential compression devices were placed on both legs and turned on. Appropriate perioperative antibiotics were given prior to the start of surgery. General anesthesia was induced the patient was intubated. Del Real catheter was placed sterilely in the bladder. The abdomen was prepped and draped in sterile fashion. Surgical time-out was conducted. Local anesthetic was injected under the skin just superior to the umbilicus and a 5 mm vertical incision was made at this site. The umbilical stalk was grasped with a Christianne and elevated. A Veress needle was passed through the fascia into proper position. The position was tested with a saline drop test which was appropriate for intra-abdominal Veress needle placement. The abdomen was then insufflated in the usual fashion. Once insufflated to 15 mm Hg the Veress needle was removed and a 5 mm optical trocar was placed under direct vision using a 5 mm 30 degree scope. Once the camera was inside the abdomen I took a look around. There was no injury from port placement. Two additional ports were placed in a similar fashion in the suprapubic position and left lower quadrant. The umbilical port was upsized to a 12 mm port. In the right lower quadrant there were omental adhesions up to the abdominal wall obscuring hernia in the right groin. These adhesions were taken down with blunt dissection and using ligature for hemostasis. The patient was placed in Trendelenburg position with right side up. The omentum and small bowel was swept the left and the cecum was exposed. There was a dense phlegmon at the base of the appendix. The cecum, base of appendix, and abdominal wall were all socked in together with very thick scar tissue. I then followed the cecum superiorly towards the liver, and it traversed retrocecal for about 10 or 15 cm. It was thickened and there were palpable fecaliths within the lumen. Starting at the distal tip of the appendix I dissected it free from the abdominal wall and the colon using blunt and sharp dissection with Elizabeth ligature. Once I came back to the base of the appendix I don't with the phlegmon. I carefully dissected out, protecting the small bowel and the cecum. At no time were we near the ureter. After prolonged dissection the base of the appendix came fully into view where it came into the cecum. There was a small soft abscess cavity near the base of the appendix. There was no pus in it, but it was softer than the rest of the phlegmon, and could be suctioned clean. I used the suction to clean it, and then there was no remaining fluid, pus, or soft phlegmon remaining. A blue load 60 mm endoscopic stapler was brought into the field and used to transect the cecum at the base of the appendix. I then used 3 0 PDS to over sew the staple line, and then a 2nd layer of sutures replaced with 3 0 silk and omentum was secured over top of the cecum with a 3 0 silk. There was good hemostasis, all free fluid and blood were suctioned out. There was no spillage of stool. I used the laparoscopic suture Passer and closed the umbilical port site with 0 Vicryl suture through the fascia. At this point the insufflation was removed from the abdomen and the port sites were closed with, 3 O Vicryl in the subcutaneous layers, and 4 Monocryl in the skin. Each port site was sealed with Dermabond. Local anesthetic was given at each of the port sites and in the fascia. This concluded the procedure. At this point the needle sponge and instrument counts were correct. The appendix was passed off the table for pathology. Patient was awakened from anesthesia and extubated. She was transferred to the postanesthesia care unit in stable condition. Complications: none Post-operative Condition: stable Disposition: PACU
[2019-11-06] MEDS: OXYCODONE/ACETAMINOPHEN 5/325 TABLET 1 TAB PO (13:32)
--- NOTE | 2019-11-06 14:05 | SUR.PHASEII ---
Instructions reviewed w/pt and spouse. Questions answered. Pain 4-5, declines med but withes to rest a little longer before going home. Instructed to request another pain pill if desired.
--- NOTE | 2019-11-06 14:19 | SUR.PHASEII ---
Spoke with patient, pain 4-5, declines need of pain med. Drinking water, no nausea. Incision remains CDI
== END 2019-11-06 14:41 | disposition home or self-care (01) ==
PROVIDERS: PCP Internal Medicine; Visit Provider Surgery
PROC: 0DTJ4ZZ Resection of Appendix, Percutaneous Endoscopic Approach (ICD-10-PCS; CPT 44970; principal; 2019-11-06 11:15)
DX: K35.80 Unspecified acute appendicitis (principal); N40.1 Benign prostatic hyperplasia with lower urinary tract symptoms; K66.0 Peritoneal adhesions (postprocedural) (postinfection); K38.1 Appendicular concretions; R33.8 Other retention of urine
CPT/HCPCS: 44970; 51701; 81001; 99283; J1100; J2405; J2543; J2704; J3010

== ENCOUNTER 2019-11-06 20:20 | Emergency (ER) | payer MEDICARE, SELFPAY ==
[2019-08-02 14:28] VITALS: BMI 25.0
[2019-11-06 20:41] VITALS: BP 140/88; PULSE 68; RESP 20; TEMP 36.6; O2SAT 97
[2019-11-06 20:55] VITALS: BP 140/88; PULSE 68; RESP 20; TEMP 36.6; O2SAT 97
[2019-11-06 21:08] LABS: Bacteria Urine None Seen
[2019-11-06 21:10] LABS: Appearance Urine UA CLEAR; Bilirubin Urine UA NEGATIVE (NEGATIVE); Color Urine UA YELLOW; Glucose Urine UA NEGATIVE (Negative); Ketones Urine UA NEGATIVE (NEGATIVE); Leukocyte Esterase Urine UA NEGATIVE (NEGATIVE); Nitrite Urine UA NEGATIVE (Negative); Occult Blood Urine UA NEGATIVE (Negative); Protein Urine UA NEGATIVE (Negative); Specific Gravity Urine UA 1.015 (1.000-1.035); Urobilinogen Urine UA 0.2 E.U./dL (0.2)
[2019-11-06 21:16] LABS: Culture Indicated Urine Cult Not Indicated; RBC Urine 0-1/HPF (0-5/HPF); Squamous Epithelial Cell Urine 0-1 /HPF (0-5/HPF); WBC Urine 0-1/HPF (0-5/HPF)
--- NOTE | 2019-11-06 22:42 | PC.NURSE ---
Verbal from Dr. Guo, Provided pt with leg bag and syringe. Pt will follow up with surgery tomorrow and leave catheter in for a few day. Pt verbalizes understanding. Does not want to wait for D/C papers. Pt getting dressed at this time.
[2019-11-06 22:48] VITALS: BP 122/60; PULSE 58; O2SAT 98
--- NOTE | 2019-11-07 03:28 | ED.MALEGU ---
HPI - Male Genitourinary General Chief complaint: Urogenital-Male Stated complaint: unable to urinate s/p surgery Time Seen by Provider: 11/06/19 22:40 Source: patient Mode of arrival: Ambulatory Limitations: no limitations History of Present Illness HPI Narrative: 74-year-old gentleman with a history of non-Hodgkin's lymphoma, BPH with prior history of urinary retention presents with inability to void after being discharged home from an uncomplicated appendectomy this morning. A number of months ago he had a ruptured appendix that was treated with antibiotics and a scheduled appendectomy after inflammation was down. Per the patient the surgery went well he went home but has been unable to void since. Del Real catheter is placed without difficulty in the emergency department with normal appearing non bloody urine returning. Related Data Home Medications Medication Instructions Recorded Confirmed Emergen-C 1,000 mg PO DAILY 08/02/19 11/06/19 Hyaluronic Acid (chond-collgn) 1 dose PO DAILY 08/02/19 11/06/19 Vitamin B Capsule 1 cap PO DAILY 08/02/19 11/06/19 Vitamin D3 1 cap PO DAILY 08/02/19 11/06/19 bilberry 1 cap PO DAILY 08/02/19 11/06/19 chromium chloride 1 dose PO DAILY 08/02/19 11/06/19 cyanocobalamin (vitamin B-12) 500 mcg PO DAILY 08/02/19 11/06/19 [Vitamin B-12] evening primrose oil 500 mg PO DAILY 08/02/19 11/06/19 lutein 1 tab PO DAILY 08/02/19 11/06/19 magnesium 1 tab PO DAILY 08/02/19 11/06/19 vitamin A 1 cap PO DAILY 08/02/19 11/06/19 tamsulosin 0.4 mg PO DAILY 09/20/19 11/06/19 Previous Rx's Medication Instructions Recorded tamsulosin 0.4 mg capsule 0.4 mg PO DAILY #90 cap 11/16/18 docusate sodium 100 mg PO BID #60 cap 11/06/19 oxycodone 5 mg PO Q4H PRN #30 tab 11/06/19 Allergies Allergy/AdvReac Type Severity Reaction Status Date / Time wheat Allergy Intermediate Verified 11/06/19 10:08 No Known Drug Allergies Allergy Unknown Verified 11/06/19 10:08 Review of Systems Review of Systems Narrative: Postsurgical abdominal pain as would be expected post surgeryDenies ? fever ? cough ? cold ? chills ? chest pain ? dyspnea ? orthopnea ? wheezing ? change to bowel or bladder habits ? nausea vomiting ? skin changes ? rashes Postsurgical abdominal pain as would be expected Patient History Medical History Acne (Resolved ~1959) Acute appendicitis with rupture (Resolved) BPH loc w urin obs/LUTS (Chronic) Chicken pox (Resolved ~1953) H/O adenomatous polyp of colon (Chronic) Hearing deficit (Chronic) Measles (Resolved) Mumps (Resolved) Non Hodgkin's lymphoma (Chronic 06/20/13) Seasonal allergies (Resolved ~1960) TIA (transient ischemic attack) (Resolved ~2014) Vision disorder (Chronic) Surgical History Anesthesia (Resolved) History of colonoscopy with polypectomy (Acute 09/20/19) History of surgery (Resolved ~1988) History of tonsillectomy (Inactive ~1952) Family History Brother Liver cancer Brother Age: 82 High cholesterol Father Heart disease Mother Heart disease Sister Age: 69 Hypertension Social History household members: spouse Smoking Status: Former smoker alcohol intake: current Smoking Status: Former smoker alcohol intake frequency: holidays/special occasions only Substance Use Type: does not use Exam Narrative Exam Narrative: General: Alert appropriate in no acute distress Respiratory: Able to speak in full sentences, no obvious respiratory distress Skin: No obvious rashes, warm and dry Neurologic: Grossly intact no obvious asymmetries or abnormalities Psych, appropriate insight and affect, cooperative Del Real catheter in place and draining appropriately. Surgical trocar sites are dressed and clean Initial Vital Signs Initial Vital Signs: Vital Signs Temperature 97.9 F 11/06/19 20:41 Pulse Rate 68 11/06/19 20:41 Respiratory Rate 20 11/06/19 20:41 Blood Pressure 140/88 11/06/19 20:41 Pulse Oximetry 97 11/06/19 20:41 Course Orders Ordered: ED Orders 11/06/19 21:03 UA Complete [Urinalysis and Microscopic] Stat Vital Signs Vital signs: Vital Signs - 8 hr 11/06/19 20:41 11/06/19 20:55 11/06/19 22:48 Temperature 97.9 F 97.9 F Pulse Rate 68 68 58 L Respiratory Rate 20 20 Blood Pressure 140/88 140/88 122/60 Pulse Oximetry 97 97 98 MDM - Male Genitourinary Medical Records Attestation: I reviewed the patient's medical records. Lab Data Labs: Lab Results 11/06/19 Range/Units 21:03 Urine Color Yellow Urine Appearance Clear Urine pH 7.0 (4.5-8.0) Ur Specific Huson 1.015 (1.000-1.035) Urine Protein Negative (Negative) Urine Glucose (UA) Negative (Negative) g/dL Urine Ketones Negative (NEGATIVE) Urine Occult Blood Negative (Negative) Urine Nitrate Negative (Negative) Urine Bilirubin Negative (NEGATIVE) Urine Urobilinogen 0.2 (0.2) E.U./dL Ur Leukocyte Esterase Negative (NEGATIVE) Urine RBC 0-1/hpf (0-5/HPF) Urine WBC 0-1/hpf (0-5/HPF) Ur Squamous Epith Cells 0-1 /hpf (0-5/HPF) Urine Bacteria None seen (None) Ur Culture Indicated? Cult not indicated MDM Narrative Medical decision making narrative: Acute urinary retention in the setting of laparoscopic appendectomy, anesthesia and narcotic pain medication in a gentleman with a history of acute urinary retention due to BPH. He currently is on Flomax. Will have him keep the Del Real catheter in place for at least 3 days, continue his Flomax. Will have him contact both his surgeon and his urologist. He is unable to void after the catheters removed in 3 days only to return to the emergency room to have it replaced. All findings were reviewed in detail with patient and his questions are answered. He is safe for home discharge Discharge Plan Departure Patient Disposition: Home Clinical Impression: Acute urinary retention Discharge Date/Time: 11/06/19 22:49 Instructions: DI for Urinary Retention in Men Activity Restrictions/Additional Instructions: Thank you for coming in today. It is not entirely unheard of to have acute urinary retention after surgery in the setting of some pelvic manipulation, anesthesia and narcotic pain medication. The Del Real catheter is draining appropriately. Typically recommend least 3 days of Del Real catheter to allow the swelling and inflammation to go down. Please continue your Flomax during this. If you are unable to void after the Del Real catheter has been removed you will need to return to the emergency department to have another Del Real placed I'm bladder surgery went well. I do encourage you to follow-up with her surgeon tomorrow to let her know that you did have this urinary retention episode. If you have any additional concerns, pain, fevers please return to the emergency room for further evaluation It was great to see both of you again! Prescriptions: No Action tamsulosin 0.4 mg capsule 0.4 mg PO DAILY Qty: 90 RF: 3 oxycodone 5 mg tablet 5 mg PO Q4H PRN (Reason: post operative pain) Qty: 30 RF: 0 docusate sodium 100 mg capsule 100 mg PO BID Qty: 60 RF: 0 evening primrose oil 500 mg Capsule 500 mg PO DAILY RF: 0 cyanocobalamin (vitamin B-12) [Vitamin B-12] 500 mcg Lozenge 500 mcg PO DAILY RF: 0 Emergen-C 1,000 mg Powder Effervescent In Packet 1,000 mg PO DAILY RF: 0 Hyaluronic Acid (chond-collgn) 1 dose PO DAILY RF: 0 Vitamin B Capsule 1 cap PO DAILY RF: 0 Vitamin D3 1 cap PO DAILY RF: 0 bilberry 1 cap PO DAILY RF: 0 chromium chloride 1 dose PO DAILY RF: 0 lutein 1 tab PO DAILY RF: 0 magnesium 1 tab PO DAILY RF: 0 vitamin A 1 cap PO DAILY RF: 0 tamsulosin 0.4 mg Capsule 0.4 mg PO DAILY RF: 0 Referrals: Niranjan Yi MD [Primary Care Provider] -
== END 2019-11-06 22:49 | disposition home or self-care (01) ==
PROVIDERS: Emergency Provider Emergency Medicine; Family Provider Internal Medicine; PCP Internal Medicine; Referring Provider Surgery
DX: R33.8 Other retention of urine (principal)
CPT/HCPCS: 51701; 81001

== ENCOUNTER 2020-12-04 08:04 | Observation (INO) | payer MEDICARE, SELFPAY ==
[2019-08-02 14:28] VITALS: BMI 25.0
[2020-12-04] VITALS (12 sets, daily range): BP systolic 129–171; BP diastolic 68–89; PULSE 52–66; RESP 16–31; TEMP 36.6–36.7; O2SAT 91–99
--- NOTE | 2020-12-04 08:24 | DI.CT.S_ITS ---
PROCEDURE: CT HEAD/BRAIN WO CON INDICATIONS: leftsided weakness now resolved TECHNIQUE: Noncontrast 4.5 mm thick angled axial sections acquired from the foramen magnum to the vertex, with coronal and sagittal reformats. For radiation dose reduction, the following was used: automated exposure control, adjustment of mA and/or kV according to patient size. COMPARISON: None. FINDINGS: Image quality: Excellent. CSF spaces: Basal cisterns are patent. No extra-axial fluid collections. The ventricles are symmetric in size and shape. Brain: No intracranial bleeds or masses. There is cerebral volume loss for age, with resultant ventricular and sulcal prominence. There are periventricular and deep white matter chronic small vessel ischemic changes. There is intracranial internal carotid artery atherosclerosis. Skull and face: Calvarium and visualized facial bones appear intact, without suspicious lesions. Sinuses: Visualized sinuses and mastoids are clear. IMPRESSION: No acute intracranial disease process. Dictated by: Dana Foote MD, PhD on 12/04/2020 at 8:59 Approved by: Dana Foote MD, PhD on 12/04/2020 at 9:00
--- NOTE | 2020-12-04 08:24 | DI.RAD.S_ITS ---
PROCEDURE: XR CHEST 1V INDICATIONS: chest pain TECHNIQUE: One view of the chest was acquired. COMPARISON: [facility], CR, XR CHEST 1V, 08/02/2019, 10:42. FINDINGS: Surgical changes and devices: None. Lungs and pleura: Lungs are clear. No pleural effusions or pneumothorax. Mediastinum: Mediastinal contours appear normal. Heart size is normal. Bones and chest wall: No suspicious bony lesions. Overlying soft tissues appear unremarkable. IMPRESSION: No evidence acute pulmonary process. Dictated by: Migel Lobo M.D. on 12/04/2020 at 9:16 Approved by: Migel Lobo M.D. on 12/04/2020 at 9:18
--- NOTE | 2020-12-04 08:26 | ED.NEUROSD ---
HPI - Neuro Symptoms/Deficit General Chief Complaint: Weakness Stated Complaint: Left side weakness Time Seen by Provider: 12/04/20 08:19 Source: patient Mode of arrival: Ambulatory Limitations: no limitations History of Present Illness HPI Narrative: Patient is a 75-year-old male who presents with left-sided weakness started at 7:30 a.m. now resolved. He said he was sitting in the back room crying when his left arm went tingling and felt like it was asleep and he felt sick go up to his jaw. He tried to stand up left leg gave out on him and he fell to the ground. He at no time had any chest pain or palpitations. It lasted for about 15 minutes and then resolved. His took his blood pressure at that time noted it was slightly elevated with a systolic of 170. He did not pass out or lose consciousness. He does not feel dizzy or lightheaded. This has never happened to him before. Quality: weak and tingling Relieving factors: time Context: sudden onset On Anticoagulants: No Related Data Home Medications Medication Instructions Recorded Confirmed Emergen-C 1,000 mg PO DAILY 08/02/19 12/04/20 Vitamin B Capsule 1 cap PO DAILY 08/02/19 11/19/19 Vitamin D3 1 cap PO DAILY 08/02/19 11/19/19 bilberry 1 cap PO DAILY 08/02/19 12/04/20 chromium chloride 1 dose PO DAILY 08/02/19 11/19/19 cyanocobalamin (vitamin B-12) 500 mcg PO DAILY 08/02/19 12/04/20 [Vitamin B-12] evening primrose oil 500 mg PO DAILY 08/02/19 11/19/19 lutein 1 tab PO DAILY 08/02/19 12/04/20 magnesium 1 tab PO DAILY 08/02/19 11/19/19 vitamin A 1 cap PO DAILY 08/02/19 11/19/19 Previous Rx's Medication Instructions Recorded tamsulosin 0.4 mg capsule 0.4 mg PO DAILY #90 cap 11/16/18 aspirin 81 mg PO DAILY #90 tab 12/04/20 Allergies Allergy/AdvReac Type Severity Reaction Status Date / Time wheat Allergy Intermediate Verified 11/19/19 09:18 No Known Drug Allergies Allergy Unknown Verified 11/19/19 09:18 Review of Systems Review of Systems ROS Unobtainable: All systems reviewed & are unremarkable except as noted in HPI and below Constitutional Constitutional: Denies chills, Denies fever(s), Denies lethargy and Reports weakness Eyes Eyes: Denies change in vision, Denies eye discharge, Denies irritation and Denies loss of vision ENT Ears, Nose, Mouth, and Throat: Denies change in voice, Denies vertigo, Denies dizziness, Denies neck pain and Denies sore throat Cardiovascular Cardiovascular: Denies chest pain, Denies irregular heart rhythm, Denies lightheadedness, Denies palpitations, Denies dyspnea, Denies dyspnea on exertion and Denies orthopnea Respiratory Respiratory: Denies cough, Denies dyspnea, Denies dyspnea on exertion and Denies wheezing Gastrointestinal Gastrointestinal: Denies abdominal pain, Denies change in bowel habits, Denies diarrhea, Denies nausea and Denies vomiting Musculoskeletal Musculoskeletal: Denies back pain, Denies neck pain and Reports numbness Integumentary/Breasts Skin/Breast: Denies pruritus, Denies erythema, Denies rash and Denies wounds Neurologic Neurologic: Reports as per HPI, Denies vertigo, Denies dizziness, Denies loss of vision, Reports numbness and Reports weakness Endocrine Endocrine: Denies palpitations Hematologic/Lymphatic On Anticoagulants: No Allergic/Immunologic Allergic/Immunologic: Denies wheezing Patient History Medical History Acne (~1959) Acute appendicitis with rupture BPH loc w urin obs/LUTS Chicken pox (~1953) H/O adenomatous polyp of colon Hearing deficit Measles Mumps Non Hodgkin's lymphoma (06/20/13) Right inguinal hernia Seasonal allergies (~1960) TIA (transient ischemic attack) (~2014) Vision disorder Surgical History Anesthesia History of colonoscopy with polypectomy (09/20/19) History of surgery (~1988) History of tonsillectomy (~1952) Family History Brother Liver cancer Brother Age: 84 High cholesterol Father Heart disease Mother Heart disease Sister Age: 71 Hypertension Social History household members: spouse Smoking Status: Former smoker alcohol intake: current Smoking Status: Former smoker alcohol intake frequency: holidays/special occasions only Substance Use Type: does not use Exam Initial Vital Signs Initial Vital Signs: Vital Signs Temperature 98.1 F 12/04/20 08:12 Pulse Rate 60 12/04/20 08:12 Respiratory Rate 18 12/04/20 08:12 Blood Pressure 169/82 H 12/04/20 08:12 Pulse Oximetry 98 12/04/20 08:12 GENERAL: Alert pleasant 75-year-old male and in no acute distress. HEENT: Head atraumatic,EOMI, pupils reactive, face symmetric, moist mucous membranes CARDIOVASCULAR: Regular rate and rhythm without murmurs, rubs or gallops. RESPIRATORY: Breath sounds equal bilaterally, no wheezes rales or rhonchi. ABDOMEN: Soft, nontender. Normoactive bowel sounds all 4 quadrants. No guarding or rebound. EXTREMITIES: Normal range of motion, no clubbing or edema. Neurovascularly intact NEUROLOGICAL: Alert and oriented x4.Normal gait and speech. Cranial nerves II through XII grossly intact. Good irvphb-iz-oeiz, good kmnz-ho-gumi, strength equal bilaterally, no dysarthria or aphasia, sensation in tact to soft touch bilaterally, no visual changes, no facial droop SKIN: Warm, dry, no laceration, no petechiae, no rashes or lesions. Scores NIH Stroke Scale Level of Conciousness: Alert, keenly responsive Ask month/age: Answers both questions correctly. Open/close eyes, close hand: Performs both tasks correctly Best gaze horizontal: Normal Visual rahman: No visual loss Facial palsy: Normal symetrical movement Left arm drift: No drift for full 10 sec Right arm drift: No drift for full 10 sec Left leg drift: No drift for full 5 sec Right leg drift: No drift for full 5 sec Limb ataxia: Absent Sensory on face/arms/legs: Normal, no sensory loss Best language: No aphasia, normal Dysarthria: Normal Extinction or inattention: No abnormality Total NIH Stroke scale score: 0 Course Orders Ordered: ED Orders 12/04/20 10:20 COVID19 Stat 12/04/20 11:16 EC echo doppler complete Routine MR stroke Stat US carotid doppler BI Stat Education, smoking cessation ONGOING Education, smoking cessation ONGOING Discontinued Medications Acetaminophen (Acetaminophen 325 Mg Tablet) 650 mg PO Q6HR PRN PRN Reason: Fever/Mild Pain (1-3) Aspirin (Aspirin Ec 81 Mg Tablet) 81 mg PO DAILY [facility] Enoxaparin Sodium (Enoxaparin 40 Mg/0.4 Ml Syringe) 40 mg SUBCUT DAILY [facility] Naloxone HCl (Naloxone 0.4 Mg/Ml Vial) 0.2 mg IV Q2MIN PRN PRN Reason: Opiate Reversal Tamsulosin HCl (Tamsulosin 0.4 Mg Capsule) 0.4 mg PO DAILY [facility] Tamsulosin HCl (Tamsulosin 0.4 Mg Capsule) 0.4 mg PO QACLUNCH [facility] Last Admin: 12/04/20 14:40 Dose: 0.4 mg Documented by: ANDRE Vital Signs Vital signs: Vital Signs - 8 hr 12/04/20 10:30 Pulse Rate 66 Respiratory Rate 27 H Blood Pressure 140/89 MDM - Neuro Symptoms/Deficit Lab Data Attestation: I reviewed the patient's lab results. Result diagrams: 12/04/20 08:52 12/04/20 08:52 Labs: Lab Results 12/04/20 12/04/20 12/04/20 Range/Units 08:52 08:52 08:52 WBC 6.6 (4.5-11.0) X10^3/uL RBC 4.61 (4.5-5.9) X10^6/uL Hgb 14.6 (13.5-17.5) g/dL Hct 43.8 (41-53) % MCV 95.2 (80-100) fL MCH 31.7 (26-34) PG MCHC 33.3 (30-36) % RDW 13.8 (11.6-14.8) % Plt Count 193 (150-400) X10^3/uL Neut % (Auto) 71.0 (50-75) % Lymph % (Auto) 17.6 L (25-40) % Pacific % (Auto) 7.5 (3-14) % Eos % (Auto) 3.0 (2-4) % Baso % (Auto) 0.9 (0-2) % Neut # (Auto) 4700 (5754-9322) /uL Lymph # (Auto) 1200 (4624-4463) /uL Pacific # (Auto) 500 (0-900) /uL Eos # (Auto) 200 (0-450) /uL Baso # (Auto) 100 (0-100) /uL PT 11.9 (10.1-12.7) SECONDS INR 1.0 (0.9-1.3) APTT 30 (26.4-36.2) SECONDS Sodium 135 L (137-145) mmol/L Potassium 4.2 (3.4-5.1) mmol/L Chloride 102 (98-107) mmol/L Carbon Dioxide 32 (22-32) mmol/L BUN 12 (9-20) mg/dL Creatinine 0.83 (0.66-1.25) mg/dL Estimated GFR > 60.0 (>60) mL/min BUN/Creatinine Ratio 14.5 (6-22) Glucose 75 L (80-110) mg/dL Calcium 8.8 (8.4-10.2) mg/dL Total Bilirubin 0.4 (0.2-1.3) mg/dL AST 29 (17-59) IU/L ALT 19 (<50) IU/L Alkaline Phosphatase 68 (38-126) U/L Total Creatine Kinase 35 L (55-170) U/L CK-MB (CK-2) TNP CK-MB (CK-2) Rel Index TNP Troponin I < 0.012 (0.01-0.034) ng/mL Total Protein 6.2 L (6.3-8.2) g/dL Albumin 3.4 L (3.5-5.0) g/dL Globulin 2.8 (1.7-4.1) g/dL Albumin/Globulin Ratio 1.2 (1.0-2.8) SARS-CoV-2 (PCR) (Negative) 12/04/20 Range/Units 10:20 WBC (4.5-11.0) X10^3/uL RBC (4.5-5.9) X10^6/uL Hgb (13.5-17.5) g/dL Hct (41-53) % MCV (80-100) fL MCH (26-34) PG MCHC (30-36) % RDW (11.6-14.8) % Plt Count (150-400) X10^3/uL Neut % (Auto) (50-75) % Lymph % (Auto) (25-40) % Pacific % (Auto) (3-14) % Eos % (Auto) (2-4) % Baso % (Auto) (0-2) % Neut # (Auto) (6777-5674) /uL Lymph # (Auto) (2640-5006) /uL Pacific # (Auto) (0-900) /uL Eos # (Auto) (0-450) /uL Baso # (Auto) (0-100) /uL PT (10.1-12.7) SECONDS INR (0.9-1.3) APTT (26.4-36.2) SECONDS Sodium (137-145) mmol/L Potassium (3.4-5.1) mmol/L Chloride (98-107) mmol/L Carbon Dioxide (22-32) mmol/L BUN (9-20) mg/dL Creatinine (0.66-1.25) mg/dL Estimated GFR (>60) mL/min BUN/Creatinine Ratio (6-22) Glucose (80-110) mg/dL Calcium (8.4-10.2) mg/dL Total Bilirubin (0.2-1.3) mg/dL AST (17-59) IU/L ALT (<50) IU/L Alkaline Phosphatase (38-126) U/L Total Creatine Kinase (55-170) U/L CK-MB (CK-2) CK-MB (CK-2) Rel Index Troponin I (0.01-0.034) ng/mL Total Protein (6.3-8.2) g/dL Albumin (3.5-5.0) g/dL Globulin (1.7-4.1) g/dL Albumin/Globulin Ratio (1.0-2.8) SARS-CoV-2 (PCR) Negative (Negative) Urine Dip Bedside Urine Glucose Negative Bedside Urine Bilirubin - Negative Bedside Urine Ketone - Negative Urine Specific Axson 1.015 Bedside Urine Occult Blood - Negative Bedside Urine pH 7.5 Bedside Urine Protein - Negative Bedside Urine Urobilinogen - Negative Bedside Urine Nitrite - Negative Bedside Urine Leukocytes - Negative Esterase Imaging Data CT scan - head: Radiologist's Impression: PROCEDURE: CT HEAD/BRAIN WO CON INDICATIONS: leftsided weakness now resolved TECHNIQUE: Noncontrast 4.5 mm thick angled axial sections acquired from the foramen magnum to the vertex, with coronal and sagittal reformats. For radiation dose reduction, the following was used: automated exposure control, adjustment of mA and/or kV according to patient size. COMPARISON: None. FINDINGS: Image quality: Excellent. CSF spaces: Basal cisterns are patent. No extra-axial fluid collections. The ventricles are symmetric in size and shape. Brain: No intracranial bleeds or masses. There is cerebral volume loss for age, with resultant ventricular and sulcal prominence. There are periventricular and deep white matter chronic small vessel ischemic changes. There is intracranial internal carotid artery atherosclerosis. Skull and face: Calvarium and visualized facial bones appear intact, without suspicious lesions. Sinuses: Visualized sinuses and mastoids are clear. IMPRESSION: No acute intracranial disease process. Dictated by: Dana Foote MD, PhD on 12/04/2020 at 8:59 Chest x-ray: Radiologist's Impression: PROCEDURE: CT HEAD/BRAIN WO CON INDICATIONS: leftsided weakness now resolved TECHNIQUE: Noncontrast 4.5 mm thick angled axial sections acquired from the foramen magnum to the vertex, with coronal and sagittal reformats. For radiation dose reduction, the following was used: automated exposure control, adjustment of mA and/or kV according to patient size. COMPARISON: None. FINDINGS: Image quality: Excellent. CSF spaces: Basal cisterns are patent. No extra-axial fluid collections. The ventricles are symmetric in size and shape. Brain: No intracranial bleeds or masses. There is cerebral volume loss for age, with resultant ventricular and sulcal prominence. There are periventricular and deep white matter chronic small vessel ischemic changes. There is intracranial internal carotid artery atherosclerosis. Skull and face: Calvarium and visualized facial bones appear intact, without suspicious lesions. Sinuses: Visualized sinuses and mastoids are clear. IMPRESSION: No acute intracranial disease process. Dictated by: Dana Foote MD, PhD on 12/04/2020 at 8:59 ECG Data Attestation: I personally reviewed and interpreted this ECG as follows: Interpretation: Normal sinus rhythm rate 60 p.r. interval 140 QRS [address] changes no T-wave inversions PVC noted MDM Narrative Medical decision making narrative: Concerned that patient had TIA. He had significant left lower leg extremity weakness along with left arm numbness and tingling both of which have resolved. He apparently does have history of TIA in the chart but he did not mention that. 10:25am Dr. Yi updated patient's symptoms test results agrees with observation for TIA Discharge Plan Departure Patient Disposition: Admitted as Observation Clinical Impression: Brain TIA Admit Date/Time: 12/04/20 10:30 Admit Provider: Niranjan Yi
[2020-12-04 09:01] LABS: Add Manual Diff / Slide Review NO; Basophils Absolute Auto 100 /uL (0-100); Basophils Percent Auto 0.9 % (0-2); Eosinophils Absolute Auto 200 /uL (0-450); Hematocrit 43.8 % (41-53); Hemoglobin 14.6 g/dL (13.5-17.5); Lymphocytes Absolute Auto 1200 /uL (1100-4500); Lymphocytes Percent Auto 17.6 % (25-40); Mean Corpuscular HGB Conc 33.3 % (30-36); Mean Corpuscular Hemoglobin 31.7 PG (26-34); Mean Corpuscular Volume 95.2 fL (80-100); Monocytes Absolute Auto 500 /uL (0-900); Monocytes Percent Auto 7.5 % (3-14); Neutrophils Absolute Auto 4700 /uL (1500-7000); Platelet Count 193 X10^3/uL (150-400); Red Blood Cell Count 4.61 X10^6/uL (4.5-5.9); Red Cell Distribution Width 13.8 % (11.6-14.8); White Blood Cell Count 6.6 X10^3/uL (4.5-11.0)
[2020-12-04 09:07] LABS: Prothrombin Time 11.9 SECONDS (10.1-12.7)
[2020-12-04 09:10] LABS: PTT Partial Thromboplastin Tim 30 SECONDS (26.4-36.2)
[2020-12-04 09:11] LABS: Alanine Aminotransferase 19 IU/L (<50); Albumin 3.4 g/dL (3.5-5.0); Albumin Globulin Ratio 1.2 (1.0-2.8); Alkaline Phosphatase 68 U/L (38-126); Aspartate Aminotransferase 29 IU/L (17-59); BUN Creatinine Ratio 14.5 (6-22); Bilirubin Total 0.4 mg/dL (0.2-1.3); Blood Urea Nitrogen 12 mg/dL (9-20); Calcium 8.8 mg/dL (8.4-10.2); Carbon Dioxide 32 mmol/L (22-32); Chloride 102 mmol/L (98-107); Creatine Kinase 35 U/L (55-170); Estimated Glomerular Filt Rate > 60.0 mL/min (>60); Globulin 2.8 g/dL (1.7-4.1); Glucose 75 mg/dL (80-110); HEMOLYSIS < 15 (0-50); Potassium 4.2 mmol/L (3.4-5.1); Sodium 135 mmol/L (137-145); Total Protein 6.2 g/dL (6.3-8.2)
[2020-12-04 09:22] LABS: Troponin I < 0.012 ng/mL (0.01-0.034)
[2020-12-04 10:39] LABS: COVID19 -Nasal RAPID Negative (Negative)
--- NOTE | 2020-12-04 11:16 | DI.MRI.S_ITS ---
PROCEDURE: MR STROKE Pre- and post-contrast brain MRI, non-contrast brain MR angiogram, pre- and postcontrast neck MR angiogram INDICATIONS: TIA left side weakness. TECHNIQUE: Brain: Noncontrast axial T1 spin echo, axial T2 fast spin echo, sagittal and axial FLAIR, coronal T2 fast spin echo, axial gradient echo, axial diffusion and ADC through the brain. After the administration of contrast, axial 3D VIBE of the cranial vasculature and brain. Brain MRA: Non-contrast 3-D time of flight MR angiogram, with multiple tjkcvsh-phowhnmsn-exyhdsbvgo (MIP) reformats performed. Neck MRA: Axial and sagittal TruFISP through the neck. Coronal dynamic MR angiogram during administration of contrast in the arterial and venous phases, with 3-dimenstional noohcqm-bpfxegqio-xcuzkvxbun (MIP) reformats constructed from subtraction images. COMPARISON: [facility], US, US CAROTID DOPPLER BI, 12/04/2020, 13:42. [facility], CT, CT HEAD/BRAIN WO CON, 12/04/2020, 8:26. FINDINGS: Image quality: Excellent. BRAIN: CSF spaces: Ventricles are normal in size and shape. Basal cisterns are patent. No extra-axial fluid collections. Brain: No intracranial bleeds or mass effects. There is mild, diffuse cerebral volume loss. There are mild periventricular and subcortical white matter chronic microvascular ischemic changes. Ace-white matter interface is normal. Diffusion weighted images show no acute ischemic insults. Brainstem appears normal. Normal intravascular flow voids are present. Dural sinuses demonstrate normal postcontrast enhancement. No abnormal intracranial enhancement. Skull and face: Calvarial marrow signal is normal. Orbits appear normal. Sinuses: Sinuses and mastoids are clear. BRAIN MR ANGIOGRAM: Anterior circulation: Intracranial internal carotid arteries are normal in size and enhancement. The flow within the paired anterior cerebral arteries is normal and symmetric. The flow within the middle cerebral arteries is normal and symmetric. The anterior communicating artery is seen. No stenoses, occlusions, or aneurysms. Posterior circulation: The visualized portions of the vertebral arteries demonstrate normal caliber, and join to form a normal appearing basilar artery. The flow within the posterior cerebral arteries is normal and symmetric. No stenoses, occlusions, or aneurysms. NECK MR ANGIOGRAM: Carotids: Great vessels demonstrate a conventional anatomy as they arise from the aortic arch. The origins of the common carotid arteries appear patent. The calibers and courses of both common carotid arteries are normal. The bifurcation regions appear normal bilaterally. Minimal atherosclerotic irregularity noted in the origins of the internal carotid arteries bilaterally which does not cause measurable stenosis. Posterior circulation: The origins of the vertebral arteries appear patent. More superior portions of both vertebral arteries demonstrate normal course and caliber, and join to form a normal appearing basilar artery. Miscellaneous: Subclavian arteries appear patent. Pre-contrast images through the neck show no soft tissue abnormalities. IMPRESSION: BRAIN MRI: 1. No acute intracranial disease process. 2. No areas of acute or chronic infarction. 3. No abnormal intracranial mass or suspicious postcontrast enhancement. 4. No intracranial hemorrhage. 5. Mild, diffuse cerebral volume loss. 6. Mild periventricular and subcortical white matter chronic microvascular ischemic change. BRAIN MR ANGIOGRAM: Negative examination. NECK MR ANGIOGRAM: 1. Minimal atherosclerotic irregularity with about measurable stenosis involving the origins of the internal carotid arteries. 2. Vertebral arteries are fully patent. Dictated by: Dana Foote MD, PhD on 12/04/2020 at 15:50 Approved by: Dana Foote MD, PhD on 12/04/2020 at 16:03
--- NOTE | 2020-12-04 11:16 | DI.US.S_ITS ---
PROCEDURE: US CAROTID DOPPLER BI INDICATIONS: TIA left side TECHNIQUE: Color and pulse Doppler interrogation was performed of both carotid systems, with image documentation and velocity measurements. COMPARISON: None. FINDINGS: Stenosis calculations are based on SRU (Society of Radiologists in Ultrasound) criteria. Right side: Brachial blood pressure: 140/89 mm Hg. Common Carotid Artery PSV: - Distal: 89 cm/s Internal Carotid Artery PSV - 89 cm/s EDV- 34 cm/s External Carotid Artery PSV- Proximal: 75 cm/s ICA/CCA PSV- Ratio: 1.0 Ace scale imaging description: Mild plaque, less than 50% stenosis Percent internal carotid artery stenosis: Mild, less than 50% stenosis . Vertebral artery: Flow direction is antegrade. Left side: Brachial blood pressure: 140/89 mm Hg. Common Carotid Artery PSV- Distal: 87 cm/s Internal Carotid Artery PSV- 92 cm/s EDV- 39 cm/s External Carotid Artery PSV- Proximal: 62 cm/s ICA/CCA PSV- Ratio: 1.02 Ace scale imaging description: Mild plaque. Percent internal carotid artery stenosis: Mild, less than 50% stenosis . Vertebral artery: Flow direction is antegrade. IMPRESSION: Bilateral mild, less than 50% internal carotid artery stenoses. Dictated by: Migel Lobo M.D. on 12/04/2020 at 15:20 Approved by: Migel Lobo M.D. on 12/04/2020 at 15:24
--- NOTE | 2020-12-04 11:16 | DI.ECHO.S_ITS ---
[place] +---------+ : : [address] : : : : [id number] : : : : Phone: [phone] Echocardiogram Report + + :Name: WHITNEY LAROSE Study Date: 12/04/2020 Height: 25.5 in: :[facility] ReadingLocation: Weight: 265 lb : : Gender: Male BSA: 1.1 m2 : :: 1945 Age: 75 yrs BP: 129/72 mmHg: :Reason For Study: TIA : : Performed By: Carlos Ramos : :Referring: KATHY CHIN R : + + Interpretation Summary The left ventricle is normal in size. Left ventricular ejection fraction is estimated to be 40 %. Compared to the prior exam, the left ventricular function is reduced. There is mild to moderate global hypokinesis of the left ventricle. There is no obvious LV thrombus. The right ventricle is grossly normal size. The right ventricular systolic function is normal. There is mild mitral regurgitation. The IVC is of normal diameter and collapses greater than 50% with a sniff. This suggests a low right atrial pressure of 3 mm Hg. No significant atherosclerotic plaque in the aortic arch seen. Predominant rhythm was sinus. Procedure: A two-dimensional transthoracic echocardiogram with color flow and Doppler was performed. The study quality was technically difficult. Comparison is made with the echocardiogram of 01/26/15. A contrast injection of Definity was performed to improve assessment of LV function. The patient was in normal sinus rhythm during the exam. The patient had occasional PVCs during the exam. Left Ventricle: The left ventricle is normal in size. There is normal left ventricular wall thickness. There is no thrombus. Left ventricular ejection fraction is estimated to be 40 %. Compared to the prior exam, the left ventricular function is reduced. Septal motion is consistent with conduction abnormality. There is mild to moderate global hypokinesis of the left ventricle. Diastolic parameters suggest a relaxation abnormality of the left ventricle, consistent with probable normal filling pressures. Right Ventricle: The right ventricle is grossly normal size. The right ventricular systolic function is normal. Atria: The left atrial size is normal. The right atrium is mildly dilated. There is no Doppler evidence for an atrial septal defect. Mitral Valve: The mitral valve is normal in structure and function. There is mild mitral regurgitation. Aortic Valve: The aortic valve is trileaflet. The aortic valve opens well. The aortic valve is mildly calcified. There is no aortic valve stenosis. No aortic regurgitation is present. Tricuspid Valve: The tricuspid valve is normal in structure and function. Pulmonary artery pressures cannot be estimated because of the lack of a measurable TR jet velocity. There is trace tricuspid regurgitation. Pulmonic Valve: The pulmonic valve leaflets are thin and pliable; valve motion is normal. There is trace pulmonic regurgitation. Great Vessels: The aortic root is normal size. There is aortic root sclerosis/calcification. The dimensions of the ascending aorta are normal. The pulmonary artery is normal size. The IVC is of normal diameter and collapses greater than 50% with a sniff. This suggests a low right atrial pressure of 3 mm Hg. Pericardium/ Pleura There is no pericardial effusion. There is no pleural effusion. MMode/2D Measurements & Calculations LVIDd: 4.8 cm LVOT diam: 2.3 cm LVIDs: 3.6 cm Ao root diam: 3.1 cm FS: 25.5 % asc Aorta Diam: 3.3 cm EPSS: 0.69 cm Ao Arch Diam (Prox Trans): 2.4 cm IVSd: 1.0 cm LVPWd: 0.99 cm LV leos. diameter/BSA (cm/m^2): 4.2 LV sys. diameter/BSA (cm/m^2): 3.2 LA dimension: 3.0 cm RA long axis: 5.2 cm LA A2 area: 12.5 cm2 RA area: 16.2 cm2 LA A4 area: 12.5 cm2 RA vol: 43.3 ml LA length (vol): 4.1 cm RA : 38.2 ml/m2 LA vol: 32.1 ml IVC diam: 0.92 cm LA vol index: 28.4 ml/m2 Doppler Measurements & Calculations Ao V2 max: 112.5 cm/sec LVOT Max Benton: 55.8 cm/sec Ao V2 mean: 85.8 cm/sec LV V1 max P.2 mmHg Ao max P.1 mmHg LV V1 VTI: 13.4 cm Ao mean P.1 mmHg MIKE(I,D): 2.3 cm2 Ao V2 VTI: 25.1 cm MIKE(V,D): 2.1 cm2 sev ratio: 0.53 MIKE indexed to BSA (cm^2/m^2): 2.0 MV E max benton: 39.9 cm/sec PA V2 max: 76.1 cm/sec MV A max benton: 60.0 cm/sec PA V2 mean: 57.3 cm/sec MV E/A: 0.67 PA mean P.4 mmHg Med Peak E' Benton: 5.2 cm/sec PA pr(Accel): 12.2 mmHg E/E' med: 7.7 Lat Peak E' Benton: 8.1 cm/sec E/E' lat: 4.9 E/e' average: 6.3 MV dec time: 0.24 sec SV(LVOT): 57.9 ml Reading Physician:01:21 PM
--- NOTE | 2020-12-04 12:21 | PC.NURSE ---
Addendum entered by Emmy Cortez R.N. 12/04/20 15:34: Remains neurologically WNL. No deficits noted, Pt plans to d/c in AM. IV SL. Call light in reach. Addendum entered by Emmy Cortez R.N. 12/04/20 15:33: Pt off floor to MRI @ 1500. Addendum entered by Emmy Cortez R.N. 12/04/20 12:25: 1210-Echo being completed in room at present. Original Note: Admit from ER, Pt is A/o x4, able to make needs known. Reports L sided TIA symptoms have completely resolved. No tingle to jaw, or L side of body. Tele placed. Wallet send home with . Pt reports only taking Flomax daily. Usually pretty healthy, per Pt. IV SL, lungs clear, RA, skin check completed. at bedside and updated on POC and remaining testing to be completed. Call light in reach.
--- NOTE | 2020-12-04 12:34 | P.HP_ITS ---
History of Present Illness History of Present Illness Date Patient Seen: 12/04/20 Chief complaint: Left side weakness Narrative: 75-year-old male whom I have not seen since [address] [facility] Emergency Department on day of admission after experiencing some left-sided weakness. He apparently was alone in the room when his left arm began to tingle in a felt like it was going to sleep. He felt like it went up in to his jaw and then he tried to stand and his left leg gave out and he fell to the ground. After about 15 minutes this all resolved and he was able to stand etcperiod. His who is an RN took his blood pressure noted it was slightly elevated at 170 systolic. At no point was any loss of consciousness. There was no headache involved. No dizziness or lightheadedness. No sense of palpitations chest pain etc period. He was admitted to the hospital in 2014 with very similar symptoms. MRI with angiography was performed and was unremarkable. Rest of his workup including cardiac monitoring and echocardiogram were equally unremarkable.. He was recommended to take 1 aspirin daily somewhere between that point and today that has disappeared and he has stopped doing that Patient does take a rather large amount of dietary supplements for his health. Was diagnosed with COVID-19 in October. Had some minor symptoms something like a very mild fluid he says. Not sure where he got it. Symptoms have resolved although his stamina is not quite back to normal. Did not require specific treatment of any sort. Patient History Medical History Acne (~1959) Acute appendicitis with rupture BPH loc w urin obs/LUTS Chicken pox (~1953) H/O adenomatous polyp of colon Hearing deficit Measles Mumps Non Hodgkin's lymphoma (06/20/13) Right inguinal hernia Seasonal allergies (~1960) TIA (transient ischemic attack) (~2014) Vision disorder Surgical History Anesthesia History of colonoscopy with polypectomy (09/20/19) History of surgery (~1988) History of tonsillectomy (~1952) Family & Social History Family History Brother Liver cancer Brother Age: 84 High cholesterol Father Heart disease Mother Heart disease Sister Age: 71 Hypertension Social History: household members spouse Safety & Behavioral: Feels Safe in Current Yes Environment Been Physically Hurt or No Threatened By a Person Tobacco & Substance use: Smoking Status Former smoker alcohol intake current alcohol intake frequency holiday/special occasion Substance Use Type does not use Meds Home Medications and Allergies Home Medications Medication Instructions Recorded Confirmed Type tamsulosin 0.4 mg capsule 0.4 mg PO DAILY #90 cap 11/16/18 11/19/19 Rx Emergen-C 1,000 mg PO DAILY 08/02/19 12/04/20 History Vitamin B Capsule 1 cap PO DAILY 08/02/19 11/19/19 History Vitamin D3 1 cap PO DAILY 08/02/19 11/19/19 History bilberry 1 cap PO DAILY 08/02/19 12/04/20 History chromium chloride 1 dose PO DAILY 08/02/19 11/19/19 History cyanocobalamin (vitamin B-12) 500 mcg PO DAILY 08/02/19 12/04/20 History [Vitamin B-12] evening primrose oil 500 mg PO DAILY 08/02/19 11/19/19 History lutein 1 tab PO DAILY 08/02/19 12/04/20 History magnesium 1 tab PO DAILY 08/02/19 11/19/19 History vitamin A 1 cap PO DAILY 08/02/19 11/19/19 History aspirin 81 mg PO DAILY #90 tab 12/04/20 Rx Allergies Allergy/AdvReac Type Severity Reaction Status Date / Time wheat Allergy Intermediate Verified 11/19/19 09:18 No Known Drug Allergies Allergy Unknown Verified 11/19/19 09:18 Review of Systems Constitutional Constitutional: Denies excessive sweating, Denies fever(s), Denies headache(s), Denies weakness, Denies weight gain and Denies weight loss Eyes Eyes: Denies change in vision, Denies itchy eyes, Denies loss of vision and Denies other visual disturbances ENT Ears, Nose, Mouth, and Throat: No change in voice, No dysphagia, No dizziness, No otalgia, No headache(s), No hoarseness, No lip swelling, No neck pain, No sore throat, No throat swelling and No tongue swelling Cardiovascular Cardiovascular: Denies chest pain, Denies syncope, Denies rapid heart rate, Denies irregular heart rhythm, Denies palpitations, Denies dyspnea, Denies dyspnea on exertion and Denies slow heart rate Respiratory Respiratory: Denies chest congestion, Denies cough, Denies hemoptysis, Denies dyspnea, Denies dyspnea on exertion, Denies stridor and Denies wheezing Gastrointestinal Gastrointestinal: Denies abdominal pain, Denies bloating, Denies change in bowel habits, Denies change in stool character, Denies dysphagia, Denies nausea, Denies vomiting and Denies hematemesis Genitourinary Genitourinary: Denies hematuria, Denies difficulty urinating and Denies urinary frequency Musculoskeletal Musculoskeletal: Denies abnormal gait, Denies myalgias, Denies arthralgias, Denies limited range of motion and Denies neck pain Integumentary/Breasts Skin/Breast: Denies bleeding lesions, Denies change in pigmentation, Denies changing lesions, Denies new lesions, Denies rash, Denies skin swelling, Denies sores and Denies jaundice Neurologic Neurologic: Denies abnormal speech, Denies abnormal gait, Denies behavioral changes, Denies confusion, Denies dizziness, Denies syncope, Denies headache(s), Denies loss of vision, Denies memory loss, Denies seizure-like activity, Denies paresthesias and Denies weakness Psychiatric Psychiatric: Denies behavioral changes, Denies change in appetite, Denies confusion, Denies difficulty concentrating, Denies auditory hallucinations, Abdoulaye es memory loss, Denies mood swings and Denies suicidal ideation Endocrine Endocrine: Denies excessive sweating, Denies flushing, Denies polyuria and Denies palpitations Hematologic/Lymphatic Hematologic/Lymphatic: Denies easy bleeding, Denies easy bruising and Denies lymphadenopathy Allergic/Immunologic Allergic/Immunologic: Denies urticaria, Denies itchy eyes, Denies lip swelling, Denies throat swelling, Denies tongue swelling and Denies wheezing Exam Vital Signs (past 8 hours): - 12/04/20 08:12 12/04/20 08:18 12/04/20 08:21 Temperature 98.1 F Pulse Rate 60 60 62 Respiratory Rate 18 22 Blood Pressure 169/82 H 163/82 H Pulse Oximetry 98 91 99 12/04/20 08:37 12/04/20 08:39 12/04/20 09:00 Temperature Pulse Rate 53 L 56 L 55 L Respiratory Rate 18 18 Blood Pressure 171/76 H 155/70 H Pulse Oximetry 98 99 99 12/04/20 09:30 12/04/20 09:36 12/04/20 10:00 Temperature Pulse Rate 65 53 L 52 L Respiratory Rate 28 H 30 H 31 H Blood Pressure 145/74 H 143/78 H Pulse Oximetry 99 99 12/04/20 10:30 Temperature Pulse Rate 66 Respiratory Rate 27 H Blood Pressure 140/89 Pulse Oximetry Oxygen Delivery Method Room Air Narrative Exam Narrative: Middle-aged male who appears younger than stated age in no obvious distress coming out of the bathroom on his own with no difficulty HEENT-unremarkable, normocephalic atraumatic Neck-no lymphadenopathy no bruits Lungs-clear anteriorly and posteriorly no wheezes no crackles good breath sounds Heart-regular rate and rhythm, no murmur, rub, or gallop. normal S1-S2 Abdomen-positive bowel tones, soft, nontender, nondistended, no hepatosplenomegaly, no masses palpable Neuro-normal to screening exam, gait normal Extremities-no cyanosis clubbing or edema Objective Labs Result Diagrams: 12/04/20 08:52 12/04/20 08:52 Labs: Laboratory Results - last 24 hr 12/04/20 12/04/20 12/04/20 08:52 08:52 08:52 WBC 6.6 RBC 4.61 Hgb 14.6 Hct 43.8 MCV 95.2 MCH 31.7 MCHC 33.3 RDW 13.8 Plt Count 193 Neut % (Auto) 71.0 Lymph % (Auto) 17.6 L [place] % (Auto) 7.5 Eos % (Auto) 3.0 Baso % (Auto) 0.9 Neut # (Auto) 4700 Lymph # (Auto) 1200 [place] # (Auto) 500 Eos # (Auto) 200 Baso # (Auto) 100 PT 11.9 INR 1.0 APTT 30 Sodium 135 L Potassium 4.2 Chloride 102 Carbon Dioxide 32 BUN 12 Creatinine 0.83 Estimated GFR > 60.0 BUN/Creatinine Ratio 14.5 Glucose 75 L Calcium 8.8 Total Bilirubin 0.4 AST 29 ALT 19 Alkaline Phosphatase 68 Total Creatine Kinase 35 L CK-MB (CK-2) TNP CK-MB (CK-2) Rel Index TNP Troponin I < 0.012 Total Protein 6.2 L Albumin 3.4 L Globulin 2.8 Albumin/Globulin Ratio 1.2 SARS-CoV-2 (PCR) 12/04/20 10:20 WBC RBC Hgb Hct MCV MCH MCHC RDW Plt Count Neut % (Auto) Lymph % (Auto) Norman % (Auto) Eos % (Auto) Baso % (Auto) Neut # (Auto) Lymph # (Auto) Norman # (Auto) Eos # (Auto) Baso # (Auto) PT INR APTT Sodium Potassium Chloride Carbon Dioxide BUN Creatinine Estimated GFR BUN/Creatinine Ratio Glucose Calcium Total Bilirubin AST ALT Alkaline Phosphatase Total Creatine Kinase CK-MB (CK-2) CK-MB (CK-2) Rel Index Troponin I Total Protein Albumin Globulin Albumin/Globulin Ratio SARS-CoV-2 (PCR) Negative Assessment & Plan Assessment & Plan narrative: 1. TIA-patient with pretty classic symptoms of a TIA that seem to match rising well with his symptoms in 2014. He had a negative workup in the emergency department which included head CT. Patient had MRI including angiography of the brain that was equally unremarkable. Carotid ultrasound done shows less than 50% stenosis bilaterally. Echocardiogram performed shows a new reduction in left ventricular ejection fraction approximately 40% but otherwise no valvular disease no other structural heart disease. No wall motion abnormalities. He has been in normal sinus rhythm since admission. Given resolution of symptoms I do not believe there is any need for skilled therapy evaluation. Given lack of findings on studies and complete resolution of symptoms I think patient is okay for discharge home this evening. He should continue on anti- platelet therapy with an aspirin 81 mg daily 2. Cardiomyopathy-no clear etiology for this at present. No symptoms to match this. 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 Plan to see him back in 2 weeks to re-evaluate this particular admission but plan repeat echo in about 3 months for re-evaluation. If need be can refer to Cardiology
[2020-12-04] MEDS: TAMSULOSIN 0.4 MG CAPSULE PO (14:40)
--- NOTE | 2020-12-04 17:11 | P.DS_ITS ---
History of Present Illness History of Present Illness Chief complaint: Left side weakness Narrative: 75-year-old male whom I have not seen since 2018 presented to the [facility] Emergency Department on day of admission after experiencing some left-sided weakness. He apparently was alone in the room when his left arm began to tingle in a felt like it was going to sleep. He felt like it went up in to his jaw and then he tried to stand and his left leg gave out and he fell to the ground. After about 15 minutes this all resolved and he was able to stand etcperiod. His who is an RN took his blood pressure noted it was slightly elevated at 170 systolic. At no point was any loss of consciousness. There was no headache involved. No dizziness or lightheadedness. No sense of palpitations chest pain etc period. He was admitted to the hospital in 2014 with very similar symptoms. MRI with a ngiography was performed and was unremarkable. Rest of his workup including cardiac monitoring and echocardiogram were equally unremarkable.. He was recommended to take 1 aspirin daily somewhere between that point and today that has disappeared and he has stopped doing that Patient does take a rather large amount of dietary supplements for his health. Was diagnosed with COVID-19 in October. Had some minor symptoms something like a very mild fluid he says. Not sure where he got it. Symptoms have resolved although his stamina is not quite back to normal. Did not require specific treatment of any sort. Discharge Providers Provider Date of admission: 12/04/20 10:30 Discharge Date: 12/04/20 Primary care physician: Niranjan Yi MD Discharge provider: Niranjan iY MD Summary Hospital Course Discharge Diagnosis: 1. TIA 2. Cardiomyopathy 3. Non-Hodgkin's lymphoma Hospital Course: Patient was admitted to the hospital via the emergency department after presenting as above. Had complete resolution of symptoms prior to arriving at the hospital. Workup in the hospital including MRI with angiography of the brain, echocardiogram, carotid ultrasound and telemetry monitoring failed to reveal any etiology for his TIA. He was given aspirin will continue on that as an outpatient 1 new finding was a mild cardiomyopathy with left ventricular ejection fraction of about 40%. This could well be due to patient's prior COVID-19 infection and will require follow-up as an outpatient Status at Discharge Cognitive/behavioral status at discharge: at baseline, oriented Functional status at discharge: independent ambulation Overall status at discharge: patient is back to baseline Time Spent with Patient Time spent: Greater than 30 minutes Exam Vital Signs (past 8 hours): - 12/04/20 09:30 12/04/20 09:36 12/04/20 10:00 Temperature Pulse Rate 65 53 L 52 L Respiratory Rate 28 H 30 H 31 H Blood Pressure 145/74 H 143/78 H Pulse Oximetry 99 99 12/04/20 10:30 12/04/20 11:16 12/04/20 16:22 Temperature 97.8 F 98.1 F Pulse Rate 66 58 L 57 L Respiratory Rate 27 H 16 16 Blood Pressure 140/89 129/76 137/68 Pulse Oximetry 98 96 Oxygen Delivery Method Room Air Oxygen Flow Rate 0 Objective Labs Result Diagrams: 12/04/20 08:52 12/04/20 08:52 Labs: Laboratory Results - last 24 hr 12/04/20 12/04/20 12/04/20 08:52 08:52 08:52 WBC 6.6 RBC 4.61 Hgb 14.6 Hct 43.8 MCV 95.2 MCH 31.7 MCHC 33.3 RDW 13.8 Plt Count 193 Neut % (Auto) 71.0 Lymph % (Auto) 17.6 L [place] % (Auto) 7.5 Eos % (Auto) 3.0 Baso % (Auto) 0.9 Neut # (Auto) 4700 Lymph # (Auto) 1200 [place] # (Auto) 500 Eos # (Auto) 200 Baso # (Auto) 100 PT 11.9 INR 1.0 APTT 30 Sodium 135 L Potassium 4.2 Chloride 102 Carbon Dioxide 32 BUN 12 Creatinine 0.83 Estimated GFR > 60.0 BUN/Creatinine Ratio 14.5 Glucose 75 L Calcium 8.8 Total Bilirubin 0.4 AST 29 ALT 19 Alkaline Phosphatase 68 Total Creatine Kinase 35 L CK-MB (CK-2) TNP CK-MB (CK-2) Rel Index TNP Troponin I < 0.012 Total Protein 6.2 L Albumin 3.4 L Globulin 2.8 Albumin/Globulin Ratio 1.2 SARS-CoV-2 (PCR) 12/04/20 10:20 WBC RBC Hgb Hct MCV MCH MCHC RDW Plt Count Neut % (Auto) Lymph % (Auto) [place] % (Auto) Eos % (Auto) Baso % (Auto) Neut # (Auto) Lymph # (Auto) [place] # (Auto) Eos # (Auto) Baso # (Auto) PT INR APTT Sodium Potassium Chloride Carbon Dioxide BUN Creatinine Estimated GFR BUN/Creatinine Ratio Glucose Calcium Total Bilirubin AST ALT Alkaline Phosphatase Total Creatine Kinase CK-MB (CK-2) CK-MB (CK-2) Rel Index Troponin I Total Protein Albumin Globulin Albumin/Globulin Ratio SARS-CoV-2 (PCR) Negative [facility] Medical History Acne (~1959) Acute appendicitis with rupture BPH loc w urin obs/LUTS Chicken pox (~1953) H/O adenomatous polyp of colon Hearing deficit Measles Mumps Non Hodgkin's lymphoma (06/20/13) Right inguinal hernia Seasonal allergies (~1960) TIA (transient ischemic attack) (~2014) Vision disorder Surgical History Anesthesia History of colonoscopy with polypectomy (09/20/19) History of surgery (~1988) History of tonsillectomy (~1952) Family History Brother Liver cancer Brother Age: 84 High cholesterol Father Heart disease Mother Heart disease Sister Age: 71 Hypertension Social History household members: spouse Smoking Status: Former smoker alcohol intake: current Discharge Plan Discharge Plan Patient Disposition: Home Discharge orders & Medications Prescriptions: New aspirin 81 mg Tablet,Delayed Release (Dr/Ec) 81 mg PO DAILY Qty: 90 RF: 0 Continued tamsulosin 0.4 mg capsule 0.4 mg PO DAILY Qty: 90 RF: 3 evening primrose oil 500 mg Capsule 500 mg PO DAILY RF: 0 cyanocobalamin (vitamin B-12) [Vitamin B-12] 500 mcg Lozenge 500 mcg PO DAILY RF: 0 Emergen-C 1,000 mg Powder Effervescent In Packet 1,000 mg PO DAILY RF: 0 Vitamin B Capsule 1 cap PO DAILY RF: 0 Vitamin D3 1 cap PO DAILY RF: 0 bilberry 1 cap PO DAILY RF: 0 chromium chloride 1 dose PO DAILY RF: 0 lutein 1 tab PO DAILY RF: 0 magnesium 1 tab PO DAILY RF: 0 vitamin A 1 cap PO DAILY RF: 0 Discontinued tamsulosin 0.4 mg Capsule 0.4 mg PO DAILY RF: 0 Follow up/Referrals: Niranjan Yi MD [Primary Care Provider] - 2 Weeks Discharge Health Status Multidrug resistant organism: No MDRO Diet/Activity/Treatments Diet: Diet as Tolerated Discharge Data Primary Care Provider: Niranjan Yi Attending Provider: Niranjan Yi Quality VTE Deep Vein Thrombosis/Pulmonary Embolism Present on Admission: No
== END 2020-12-04 18:07 | disposition home or self-care (01) ==
LOC: ED 10:29 → AC 10:30
PROVIDERS: Admitting Provider Internal Medicine; Emergency Provider Emergency Medicine; Family Provider Internal Medicine; PCP Internal Medicine; Referring Provider Emergency Medicine; Visit Provider Internal Medicine
DX: G45.9 Transient cerebral ischemic attack, unspecified (principal); R53.1 Weakness; I42.9 Cardiomyopathy, unspecified; W18.30XA Fall on same level, unspecified, initial encounter; Z86.16 Personal history of COVID-19; Z20.822 Contact with and (suspected) exposure to COVID-19
CPT/HCPCS: 36415; 70450; 70548; 70553; 71045; 80053; 81003; 82550; 84484; 85025; 85610; 85730; 87635; 93005; 93010; 93306; 93880; 99235; 99284; C9803; G0378; Q9957

== ENCOUNTER → 2021-08-25 16:02 | Outpatient (CLI) | payer MEDICARE, SELFPAY ==
--- NOTE | 2021-08-25 16:03 | DI.ECHO.S_ITS ---
[facility]---------+ [facility] +---------+ : : [address] : : : : [id number] : : : : Phone: [phone] Echocardiogram Report + + :Name: WHITNEY LAROSE Study Date: 08/25/2021 Height: 65.5 in: [facility] ReadingLocation: Weight: 120 lb : : Gender: Male BSA: 1.6 m2 : :: 1945 Age: 76 yrs BP: 146/89 mmHg: :Reason For Study: CARDIOMYOPAHTY : :Ordering Physician: ELSY, : :KATHY Jorgensen Performed By: Ethel Rhodes : :Referring: KAHTY CHIN : + + Interpretation Summary The ejection fraction is estimated to be 35-40%. Unable to grade diastolic function. The right ventricle is normal in size and function. The left atrium is mildly dilated. There is mild to moderate mitral regurgitation. Unable to estimate PASP. Compared to the prior study dated 12/04/2020, no significant change. Procedure: A two-dimensional transthoracic echocardiogram with color flow and Doppler was performed. The study quality was technically adequate. Comparison is made with the echocardiogram of 12/04/2020. The heart rate ranged between 55-67 bpm during the study. The patient had frequent PVCs during the exam. Left Ventricle: The left ventricle is normal in size and wall thickness. The ejection fraction is estimated to be 35-40%. Distolic function cannot be assessed 'Insufficient data'. Right Ventricle: The right ventricle is normal in size and function. Atria: The left atrium is mildly dilated. The right atrium is borderline dilated. There is no Doppler evidence for an interatrial shunt. Mitral Valve: The mitral valve is normal in structure and function. There is mild to moderate mitral regurgitation. Aortic Valve: The aortic valve is trileaflet. The aortic valve opens well. There is no aortic valve stenosis. There is trace aortic regurgitation. Tricuspid Valve: The tricuspid valve is normal in structure and function. There is mild tricuspid regurgitation. Pulmonary artery pressures cannot be estimated because of the lack of a measurable TR jet velocity. Pulmonic Valve: The pulmonic valve leaflets are thin and pliable; valve motion is normal. There is mild to moderate pulmonic regurgitation. Great Vessels: The aortic root is normal size. The dimensions of the ascending aorta are normal. The IVC is of normal diameter and collapses greater than 50% with a sniff. This suggests a low right atrial pressure of 3 mm Hg. Pericardium/ Pleura There is no pericardial effusion. There is no pleural effusion. MMode/2D Measurements & Calculations LVIDd: 5.1 cm LVOT diam: 2.2 cm LVIDs: 4.2 cm Ao root diam: 3.3 cm FS: 17.8 % asc Aorta Diam: 3.2 cm IVSd: 0.69 cm Ao Arch Diam (Prox Trans): 2.5 cm LVPWd: 0.88 cm LV leos. diameter/BSA (cm/m^2): 3.2 LV sys. diameter/BSA (cm/m^2): 2.6 LA A2 area: 22.6 cm2 RA long axis: 5.1 cm LA A4 area: 14.9 cm2 RA area: 18.3 cm2 LA length (vol): 4.5 cm RA vol: 55.9 ml LA vol: 63.3 ml RA : 34.9 ml/m2 LA vol index: 39.5 ml/m2 IVC diam: 1.0 cm RVD1 (basal): 3.5 cm TAPSE: 3.4 cm Doppler Measurements & Calculations Ao V2 max: 120.4 cm/sec MV E max benton: 61.5 cm/sec Ao V2 mean: 85.1 cm/sec MV A max benton: 60.2 cm/sec Ao max P.8 mmHg MV E/A: 1.0 Ao mean P.3 mmHg Med Peak E' Benton: 6.9 cm/sec Ao V2 VTI: 23.7 cm E/E' med: 8.9 Lat Peak E' Benton: 9.7 cm/sec E/E' lat: 6.3 E/e' average: 7.6 MV dec time: 0.29 sec TR max benton: 214.2 cm/sec TR max P.3 mmHg PA V2 max: 82.7 cm/sec PA V2 mean: 58.0 cm/sec PA mean P.5 mmHg PA pr(Accel): 10.5 mmHg Reading Physician:06:13 PM
== END ==
PROVIDERS: Family Provider Internal Medicine; PCP Internal Medicine; Referring Provider Internal Medicine; Visit Provider Internal Medicine
DX: B33.24 Viral cardiomyopathy (principal); I08.1 Rheumatic disorders of both mitral and tricuspid valves
CPT/HCPCS: 93306

== ENCOUNTER → 2021-11-03 12:16 | Outpatient (CLI) | payer MEDICARE, SELFPAY ==
[2021-11-03 14:15] LABS: Prostate Specific Antigen 1.32 ng/mL (0.10-4.00)
== END ==
PROVIDERS: Family Provider Internal Medicine; PCP Internal Medicine; Referring Provider Specialist; Visit Provider Specialist
DX: N40.1 Benign prostatic hyperplasia with lower urinary tract symptoms (principal)
CPT/HCPCS: 36415; 84153

== ENCOUNTER → 2022-08-31 10:17 | Outpatient (CLI) | payer MEDICARE, SELFPAY ==
[2022-08-31 10:59] LABS: Add Manual Diff / Slide Review NO; Basophils Absolute Auto 0 /uL (0-100); Basophils Percent Auto 0.5 % (0-2); Eosinophils Absolute Auto 100 /uL (0-450); Eosinophils Percent Auto 1.8 % (2-4); Hematocrit 43.6 % (41-53); Hemoglobin 14.4 g/dL (13.5-17.5); Lymphocytes Absolute Auto 1300 /uL (1100-4500); Lymphocytes Percent Auto 20.9 % (25-40); Mean Corpuscular HGB Conc 33.1 % (30-36); Mean Corpuscular Hemoglobin 31.8 PG (26-34); Mean Corpuscular Volume 96.2 fL (80-100); Monocytes Absolute Auto 500 /uL (0-900); Monocytes Percent Auto 8.7 % (3-14); Neutrophils Absolute Auto 4100 /uL (1500-7000); Neutrophils Percent Auto 68.1 % (50-75); Platelet Count 230 X10^3/uL (150-400); Red Blood Cell Count 4.53 X10^6/uL (4.5-5.9); Red Cell Distribution Width 13.8 % (11.6-14.8); White Blood Cell Count 6.1 X10^3/uL (4.5-11.0)
[2022-08-31 11:14] LABS: Alanine Aminotransferase 20 IU/L (<50); Albumin 3.6 g/dL (3.5-5.0); Albumin Globulin Ratio 1.2 (1.0-2.8); Alkaline Phosphatase 74 U/L (38-126); Aspartate Aminotransferase 27 IU/L (17-59); BUN Creatinine Ratio 15.3 (6-22); Bilirubin Total 0.4 mg/dL (0.2-1.3); Blood Urea Nitrogen 13 mg/dL (9-20); Calcium 8.4 mg/dL (8.4-10.2); Carbon Dioxide 30 mmol/L (22-32); Chloride 102 mmol/L (98-107); Cholesterol 192 mg/dL (140-199); Estimated Glomerular Filt Rate > 60 mL/min (>60); Glucose 83 mg/dL (80-110); HDL Cholesterol 55 mg/dL (40-60); HEMOLYSIS < 15 (0-50); LDL Cholesterol Calculated 127 mg/dL (<100); Potassium 4.2 mmol/L (3.4-5.1); Sodium 137 mmol/L (137-145); Total Protein 6.6 g/dL (6.3-8.2); Triglycerides 51 mg/dL (35-150)
== END ==
PROVIDERS: Family Provider Internal Medicine; PCP Internal Medicine; Referring Provider Internal Medicine; Visit Provider Internal Medicine
DX: C85.90 Non-Hodgkin lymphoma, unspecified, unspecified site (principal); I42.9 Cardiomyopathy, unspecified; R13.10 Dysphagia, unspecified; Z13.6 Encounter for screening for cardiovascular disorders; Z13.220 Encounter for screening for lipoid disorders; Z79.899 Other long term (current) drug therapy
CPT/HCPCS: 36415; 80053; 80061; 85025

== ENCOUNTER → 2022-08-31 12:42 | Outpatient (CLI) | payer MEDICARE, SELFPAY ==
--- NOTE | 2022-08-31 12:44 | DI.RAD.S_ITS ---
PROCEDURE: FL BARIUM SWALLOW INDICATIONS: Dysphagia, unspecified COMPARISON: [facility], CT, CT ABDOMEN PELVIS W CON, 08/02/2019, 9:38. FINDINGS: Function: Esophageal motility is within normal limits in the upright position. However, in the supine position, oral contrast persists in the upper 3rd of the esophagus. There is diminished peristaltic stripping. There is elicited gastroesophageal reflux. The calibrated barium tablet is hung up at the gastroesophageal junction briefly. Morphology: Air-contrast images demonstrate normal mucosal morphology. Single contrast views show no esophageal strictures, extrinsic mass effects, or diverticula. Limited images of the stomach demonstrate normal appearance. 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 Gastroesophageal reflux is elicited. Dictated by: Blas Ovalles M.D. on 08/31/2022 at 20:23 Approved by: Blas Ovalles M.D. on 08/31/2022 at 20:27
== END ==
PROVIDERS: Family Provider Internal Medicine; PCP Internal Medicine; Referring Provider Internal Medicine; Visit Provider Internal Medicine
DX: C85.90 Non-Hodgkin lymphoma, unspecified, unspecified site (principal); R13.10 Dysphagia, unspecified; K22.4 Dyskinesia of esophagus; K21.9 Gastro-esophageal reflux disease without esophagitis; I42.9 Cardiomyopathy, unspecified; Z13.6 Encounter for screening for cardiovascular disorders; Z13.220 Encounter for screening for lipoid disorders; Z79.899 Other long term (current) drug therapy
CPT/HCPCS: 36415; 74220; 80053; 80061; 85025

== ENCOUNTER → 2022-10-25 08:15 | Outpatient (CLI) | payer MEDICARE, SELFPAY ==
[2022-10-25 10:07] LABS: Prostate Specific Antigen 1.33 ng/mL (0.10-4.00)
== END ==
PROVIDERS: Family Provider Internal Medicine; PCP Internal Medicine; Referring Provider Specialist; Visit Provider Specialist
DX: N50.0 Atrophy of testis (principal); Z12.5 Encounter for screening for malignant neoplasm of prostate
CPT/HCPCS: 36415; 84153; G0103

== ENCOUNTER 2023-08-28 08:03 | Day surgery (SDC) | payer MEDICARE, SELFPAY ==
[2023-08-23 10:15] VITALS: BMI 20.7
[2023-08-28] VITALS (12 sets, daily range): BP systolic 108–177; BP diastolic 44–85; PULSE 40–71; RESP 12–17; TEMP 35.9–36.7; O2SAT 96–100; BMI 20.7
--- NOTE | 2023-08-28 | PATH_ITS ---
[facility] Accession Number: [id number] No. of containers..02 Tissue . 01 Material submitted: . PART A: prostate - FOREIGN BODIES OF PROSTATE, GROSS ONLY PART B: prostate - PROSTATE CHIPS . 01 Diagnosis: A. Foreign Body of Prostate, Removal: Three metal objects consistent with surgical clips, gross examination only. . B. Prostate Gland, Transurethral Resection: Glandular and stromal hyperplasia. Negative for malignancy. MRV 09/05/2023 1758 Local . 01 Electronically signed: . Zuleyma Polanco MD, Pathologist NPI- [id number] . 01 Gross description: . A. Received in formalin labeled with the patient's name, , and foreign bodies of the prostate x3, and consists of three thin, tarnished metallic fragments possibly consistent with surgical clip, all measuring 0.8 cm in length by 0.1 cm in diameter. No soft tissue is included; the specimen is for gross only evaluation with no sections submitted. B. Received in formalin labeled with the patient's name, , and prostate chips, and consists of multiple wolfe, rubbery soft tissue fragments weighing 12 grams and aggregating to 6.2 x 5.5 x 1.7 cm. No discrete lesions are identified, and the specimen is submitted entirely in cassettes B1-B7. ([id number]) /RASHEL 08/29/2023 1111 Local . 01 Pathologist provided ICD-10: N32.0 . 01 CPT . 664477, [id number] Performed at: [facility] [address] [place] [address] [address] [facility], [place], [place] [id number] MD Grzegorz Montelongo MD Phone: [phone]
[2023-08-28] MEDS: LACTATED RINGERS 1,000 ML 21 ML IV (08:17)
[2023-08-28] MEDS: ACETAMINOPHEN IV 1,000 MG/100 ML VIAL 400 MG IV (08:18)
--- NOTE | 2023-08-28 08:36 | PM.PREOP ---
Pre-operative Note Interval Note History & Physical reviewed/Exam performed by Physician: Yes Changes to H&P: No
[2023-08-28] MEDS: CIPROFLOXACIN 400 MG/200 ML PIGGYBACK 200 MG IV (09:03)
--- NOTE | 2023-08-28 09:32 | SUR.OPER ---
Lithotomy on padded OR bed, head on pillow, arms secured on padded arm boards at <90 degrees abduction. Legs secured in padded yellow fins stirrups.
[2023-08-28] MEDS: TRANEXAMIC ACID 1,000 MG in SODIUM CHLORIDE 0.9% 100 ML 200 MG IV (09:36)
--- NOTE | 2023-08-28 10:49 | PM.OP.1 ---
Operative Date/Time/Diagnoses Date of procedure: 08/28/23 Time of procedure: 10:25 Pre-op diagnosis: 1. Bladder outlet obstruction. 2. Status post Uro lift procedure. Post-op diagnosis: same Procedure & Clinicians Procedure: 1. Transurethral resection of prostate (complex modifier she may be assigned to this due to need for removal of prostate foreign bodies in the course of the procedure). 2. Cystoscopy/removal prostate foreign body x3 (UroLift clips). Same procedure as scheduled: Yes Indications: 1. Bladder outlet obstruction. 2. Failed UroLift procedure. Surgeon: Abrahan Thomas Click Yes if Unassisted: Yes Anesthesia Type: General Operative Notes Findings: 1. Urethra-normal caliber without annular stricture or lesion. 2. External sphincter-coapted with normal overlying urothelium. 3. Prostate-4.5+ cm length with moderately obstructing lateral lobes, very high median bar and impressive intravesical protrusion of median lobe. Three Uro lift clipped devices were recovered in the course of conducted Transurethral resection of the prostate tissue. 4. Bladder-2+ trabeculation. Normal ureteral orifices bilaterally with clear efflux. No stone, foreign body, or neoplasm. Closure Type: not applicable Specimen(s): other (1. Prostate chips. 2. Prostate foreign bodies x 3. ) Applied: catheter (Twenty-two Bangl[address] hematuria catheter.) Estimated Blood Loss (mL): 5 Blood products transfused: none Procedure in detail: The patient was positioned supine and provided general anesthesia. He was then repositioned in semi-lithotomy and the lower abdomen, genitalia, and groin were then prepped and draped in sterile fashion. The resectoscope was then advanced in the lower urinary tract under direct visualization with the findings as described above. The resectoscope was then fitted with the working element and thick resecting loop. Incisions were then made at the 11 and 1 positions from bladder neck to the level of the proximal verumontanum. Resection was conducted to the level of the capsule. The intervening anterior tissue was then resected also from bladder neck to the level of proximal verumontanum. Next, the left followed by the right lateral tissue was resected from bladder neck to a point just proximal to the verumontanum. Resection was generally taken to the level of the capsule. Finally the very elevated median bar and intravesical median lobe were resected also from bladder neck to proximal verumontanum. All prostate chips were then gathered and removed using mechanical (TUR loop) and hydrostatic mechanisms utilizing the [employer] evacuator. In the course of resection 3 UroLift clips were liberated and collected. They were submitted to pathology for gross examination only. The bladder was then partially filled and the resectoscope was removed. A [address] hematuria catheter was then advanced into the bladder over a catheter guide. The balloon was inflated to 30 cc. It was then irrigated clear for patency before attaching it to 3 way gravity normal saline irrigation. The patient was then repositioned in supine, was awakened, then transferred to [facility] in stable condition. Complications: none Post-operative Condition: stable Disposition: Acute Care
[2023-08-28] MEDS: ACETAMINOPHEN 325 MG TABLET 650 MG PO (16:21)
[2023-08-28] MEDS: OXYCODONE IR 5 MG TABLET PO (21:00)
--- NOTE | 2023-08-28 22:20 | PC.NURSE ---
Addendum entered by Italia Roberson R.N. 08/29/23 06:31: Received call from MD Thomas @ [phone], gave update on patient, received verbal order to d/c karen. Karen lewis/lisa'joshua @ [phone]. Addendum entered by Italia Roberson R.N. 08/29/23 06:00: OOB w/ stand by assistance. Patient experiencing minimal pain, Tylenol given. CBI draining light pink urine, no clots noted. Original Note: Patient is AxOx4, VSS, O2 sats 96% on RA. Patient has an indwelling catheter w/ CBI draining watermelon colored urine, no blood clots seen. 4/10 pain, Oxycodone given as ordered w/ good effect. Patient is resting in bed and able to turn self, oriented to room & call light. Patient has not been OOB since arriving on the floor, fall precautions in place.
[2023-08-29] MEDS: ACETAMINOPHEN 325 MG TABLET 650 MG PO ×2 (04:16→08:31)
[2023-08-29] MEDS: TAMSULOSIN 0.4 MG CAPSULE 0.8 MG PO (08:31)
[2023-08-29] MEDS: FINASTERIDE 5 MG TABLET PO (08:31)
[2023-08-29 09:35] VITALS: BP 132/77; PULSE 67; RESP 18; TEMP 36.9; O2SAT 98
--- NOTE | 2023-08-29 12:30 | CM.DANOTE ---
Initial DCP Assessment Note Reviewed EMR and team rounds for pt's status and anticipated d/c needs. Met with pt/spouse at bedside to introduce self and role. Pt presents as alert, upright in the recliner, smiling, and able to participate in this REFRIGERATION UNIT REPAIRER visit. Payor: Brandi [facility] Attending: Dr. Flores Pt is a 78 year-old M placed in a same day surgery bed after receiving a transurethral resection of the prostate. He resides independently in his own home with spouse, does not use DME. He expresses feeling well after his surgery, and will be d/c home after he is able to successfully urinate. Pt/spouse deny any further home resource or support needs. Spouse will transport him home once ready. No further d/c needs are identified at this time. Discharge Planning/Care Management Advanced directive, confirm from FAMILY Start: 08/28/23 11:49 Freq: Q24H Status: Active Protocol: Document 08/28/23 16:24 SB (Rec: 08/28/23 16:25 SB [id number]) Advance Directive, confirm on record Time 16:24 Person contacted Patient - patient states he doesn't want to provide for this procedure. Copy received No Time 16:25 Person contacted see above Advanced directive available on record No CM Discharge Assessment Start: 08/29/23 12:26 Freq: Status: Active Protocol: Document 08/29/23 12:26 DPL (Rec: 08/29/23 12:30 DPL [id number]) Discharge Planning Assessment Assigned Strategic Consultant NOAH Galindo Advance Directives? Yes Advance Directives on File Yes History Provided By Patient,Significant Other, Medical Record Prior Living Arrangements House Household Members spouse Type of transporation used prior to Drives own vehicle admit Independent with ADL's Yes Is patient alert and oriented? Yes Caregiver for Another No Comment OP Urology Comment No anticipated d/c needs identified at this time. Barriers to Discharge No Discharge Plan Home Transportation Arrangement Spouse Referrals Initiated None needed Whiteboard Updated in Patient Room with Yes name and ext. # of Strategic Consultant Review Status In Process Please Provide Date Initial DC 08/29/23 Assessment Was Performed Pre-Anesthesia Assessment Start: 08/23/23 10:15 Freq: Status: Active Protocol: Document 08/23/23 10:15 CAB (Rec: 08/23/23 10:22 CAB [id number]) Pre-Anesthesia Assessment Patient Information Reviewed Via Chart Review Primary Care Provider Niranjan Yi Seen Specialist in Last 12 Months Yes Specialist Seen Traveling Nurse,Urologist,Other Comment GI Primary Language Tajik Preferred Language Tajik Skull Chopper Required No Height 165.1 cm Weight 56.699 kg Body Mass Index (BMI) 20.7 Hearing Ability Hearing Impaired Hx Anesthesia Reactions No Hx Family Anesthesia Reaction No Hx Malignant Hyperthermia No Hx Blood Transfusion Reaction No Anesthesia Review Requested No Automotive Design Drafter No alcohol intake current alcohol intake frequency holidays/special occasions only Smoking Status Former smoker how long ago did patient quit smoking 50 YRS AGO Substance Use Type does not use Patient is completely paralyzed or No completely immobile Hx Sleep Apnea No CPAP/BIPAP use not prescribed Currently Taking a Beta Mar No Anti-Coagulant Therapy No Cardiac Testing No Hx Pacemaker/ICD No Pacemaker Rep Required? No Diet Type At Home Dysphagia Dysphagia Yes Bladder Pattern Retention Urinary Catheter Present No Hx Urinary Self Catheterization No Comment LUTS, bladder outlet obstruction Diabetes No Presence of External or Internal Medical No Devices Marital Status Lives With spouse Patient Discharge Plan Description Return Home Do You Have Any Spiritual Beliefs That No May Affect Your HC Choices? Do You Have Any Cultural Practices That No May Affect Your HC Choices? Emergency Contact Name Rashaun Del Rosario Emergency Contact Advance Directives? Yes Advance Directives on File Yes Power of Deskidding Machine Operator No Power of Deskidding Machine Operator Name will bring paperwork in
--- NOTE | 2023-08-29 12:36 | PM.DS.1 ---
History of Present Illness History of Present Illness Date Patient Seen: 08/29/23 Time Patient Seen: 12:36 Chief complaint: Transurethral Resection Prostate Narrative: Prasanth is a 78-year-old male admitted on 08/28/2023 and underwent uncomplicated Transurethral resection of the prostate under general anesthesia. The patient has a long history of obstructive voiding symptoms and more recently dissatisfaction on dual therapy. Discharge Providers Provider Date of admission: 08/28/2023 Discharge Date: 08/29/23 Primary care physician: Niranjan Yi MD Discharge provider: Abrahan Thomas MD Summary Hospital Course Discharge Diagnosis: 1. Bladder outlet obstruction. 2. Failure medical therapy. Hospital Course: The patient was admitted on the morning of 08/28/2023 and underwent uncomplicated Transurethral resection of the prostate under general anesthesia. His postop course was entirely unremarkable that he tolerated general diet had ability to transfer and ambulate without assistance and management of postoperative pain with oral nonsteroidal anti-inflammatories. The early afternoon of 08/29/2023 the patient was stable for discharge. Pathology was pending at discharge. Exam Vital Signs (past 8 hours): - 08/29/23 09:35 Temperature 98.5 F Pulse Rate 67 Respiratory Rate 18 Blood Pressure 132/77 Pulse Oximetry 98 Oxygen Flow Rate 0 Oxygen Delivery Method Room Air Oxygen Flow Rate 0 Narrative Exam Narrative: The patient is sitting upright in bed enjoying his lunch. He has no evidence of distress. [facility] Medical History Atrophic testicle Cardiomyopathy Right inguinal hernia Acute appendicitis with rupture Non Hodgkin's lymphoma (06/20/13) BPH loc w urin obs/LUTS H/O adenomatous polyp of colon Vision disorder Hearing deficit Seasonal allergies (~1960) TIA (transient ischemic attack) (~2014) Acne (~1959) Mumps Measles Chicken pox (~1953) Surgical History (Updated 08/23/23 @ 10:18 by Italia Cortez RN) History of urologic surgery (03/2019) History of laparoscopic appendectomy (11/06/19) History of colonoscopy with polypectomy (09/20/19) Anesthesia History of surgery (~1988) History of tonsillectomy (~1952) Family History Brother Liver cancer Brother Age: 86 High cholesterol Father Heart disease Mother Heart disease Sister Age: 73 Hypertension Social History household members: spouse Smoking Status: Former smoker alcohol intake: current Discharge Assessment & Plan Assessment and Plan Assessment: 1. Stable postoperative day 1 status post Transurethral resection of the prostate. 2. Pathology pending. Plan of Treatment: 1. Discharge home today. 2. Follow-up and discuss pathology report when final. 3. Schedule brief postop visit for repeat PVR 08/31/2023. Discharge Plan Discharge Plan Patient Disposition: Home Provider Discharge Comment: Contact the urology clinic to schedule your follow-up appointment for PVR 08/31/2023. Discharge orders & Medications Discharge Orders: Discharge (Order); Ordered 08/29/23 Ordered By: Abrahan Thomas Prescriptions: Continued Calcium Citrate 500 mg 1 tab PO DAILY pantoprazole 40 mg tablet,delayed release (DR/EC) 40 mg PO DAILY evening primrose oil 500 mg Capsule 500 mg PO DAILY Emergen-C 1,000 mg Powder Effervescent In Packet 1,000 mg PO DAILY Vitamin D3 1 cap PO DAILY chromium picolinate 1 tab PO DAILY lutein/zeaxanthin 1 tab PO DAILY magnesium cholate 200 mg 1 tab PO DAILY Vitamin B Capsule 25 mg 1 cap PO DAILY tamsulosin 0.4 mg capsule 0.8 mg PO DAILY Qty: 180 3RF finasteride 5 mg tablet 5 mg PO DAILY Qty: 60 0RF Follow up/Referrals: Niranjan Yi MD [Primary Care Provider] - Diet/Activity/Treatments Diet: Diet as Tolerated Activity: Refrain from lifting objects heavier than 15 lb x 4 weeks as instructed. Skin/Wound/Dressing Care Report to your healthcare provider any signs of infection, such as:: chills, fever, night sweats, increased pain and unusual drainage Visit Report/Discharge Packet Instructions: DI for Transurethral Resection of the Prostate Stand Alone Forms: Patient Portal/API Discharge Data Primary Care Provider: Niranjan Yi Attending Provider: Abrahan Thomas Quality VTE Deep Vein Thrombosis/Pulmonary Embolism Present on Admission: No
== END 2023-08-29 13:35 | disposition home or self-care (01) ==
LOC: OR 08:04 → AC 11:38
PROVIDERS: Family Provider Internal Medicine; PCP Internal Medicine; Referring Provider Specialist; Visit Provider Specialist
PROC: 0VT08ZZ Resection of Prostate, Via Natural or Artificial Opening Endoscopic (ICD-10-PCS; CPT 52601; principal; 2023-08-28 09:15)
DX: N40.1 Benign prostatic hyperplasia with lower urinary tract symptoms (principal); N13.8 Other obstructive and reflux uropathy
CPT/HCPCS: 52601; J0131; J0744; J2704

== ENCOUNTER → 2023-08-31 10:19 | Outpatient (CLI) | payer MEDICARE, SELFPAY ==
[2023-08-30 17:16] VITALS: BMI 20.7
== END ==
PROVIDERS: Family Provider Internal Medicine; PCP Internal Medicine; Visit Provider Specialist
DX: N40.1 Benign prostatic hyperplasia with lower urinary tract symptoms (principal)
CPT/HCPCS: 51798; 81002; 87086

== ENCOUNTER → 2023-09-06 09:45 | Outpatient (CLI) | payer MEDICARE, SELFPAY ==
[2023-08-30 17:16] VITALS: BMI 20.7
== END ==
PROVIDERS: Family Provider Internal Medicine; PCP Internal Medicine; Visit Provider Specialist
DX: N40.1 Benign prostatic hyperplasia with lower urinary tract symptoms (principal)
CPT/HCPCS: 87086

== ENCOUNTER → 2023-09-19 08:30 | Outpatient (CLI) | payer MEDICARE, SELFPAY ==
[2023-08-30 17:16] VITALS: BMI 20.7
[2023-09-19 10:31] LABS: Prostate Specific Antigen 0.753 ng/mL (0.10-4.00)
== END ==
PROVIDERS: Family Provider Internal Medicine; PCP Internal Medicine; Referring Provider Specialist; Visit Provider Specialist
DX: N40.1 Benign prostatic hyperplasia with lower urinary tract symptoms (principal)
CPT/HCPCS: 36415; 84153

== ENCOUNTER → 2023-09-27 14:31 | Outpatient (CLI) | payer MEDICARE, SELFPAY ==
[2023-08-30 17:16] VITALS: BMI 20.7
== END ==
PROVIDERS: Family Provider Internal Medicine; PCP Internal Medicine; Visit Provider Specialist
DX: N40.1 Benign prostatic hyperplasia with lower urinary tract symptoms (principal); Z48.89 Encounter for other specified surgical aftercare
CPT/HCPCS: 51798; 81002; 87086

== ENCOUNTER → 2024-01-03 08:22 | Outpatient (CLI) | payer MEDICARE, SELFPAY ==
[2023-08-30 17:16] VITALS: BMI 20.7
[2024-01-03 10:42] LABS: Prostate Specific Antigen 0.763 ng/mL (0.10-4.00)
== END ==
PROVIDERS: Family Provider Internal Medicine; PCP Internal Medicine; Referring Provider Specialist; Visit Provider Specialist
DX: N40.1 Benign prostatic hyperplasia with lower urinary tract symptoms (principal)
CPT/HCPCS: 36415; 84153

== ENCOUNTER → 2024-10-07 14:37 | Outpatient (CLI) | payer MEDICARE, SELFPAY ==
[2023-08-30 17:16] VITALS: BMI 20.7
[2024-10-07 15:20] LABS: Add Manual Diff / Slide Review NO; Basophils Absolute Auto 0 /uL (0-100); Basophils Percent Auto 0.3 % (0-2); Eosinophils Absolute Auto 200 /uL (0-450); Eosinophils Percent Auto 3.5 % (2-4); Hematocrit 44.8 % (41-53); Lymphocytes Absolute Auto 1300 /uL (1100-4500); Lymphocytes Percent Auto 21.2 % (25-40); Mean Corpuscular HGB Conc 33.4 % (30-36); Mean Corpuscular Hemoglobin 32.3 PG (26-34); Mean Corpuscular Volume 96.7 fL (80-100); Monocytes Absolute Auto 500 /uL (0-900); Monocytes Percent Auto 7.6 % (3-14); Neutrophils Absolute Auto 4200 /uL (1500-7000); Neutrophils Percent Auto 67.4 % (50-75); Platelet Count 255 X10^3/uL (150-400); Red Blood Cell Count 4.63 X10^6/uL (4.5-5.9); Red Cell Distribution Width 13.9 % (11.6-14.8); White Blood Cell Count 6.2 X10^3/uL (4.5-11.0)
[2024-10-07 15:57] LABS: Alanine Aminotransferase 24 IU/L (<50); Albumin 3.5 g/dL (3.5-5.0); Albumin Globulin Ratio 1.5 (1.0-2.8); Alkaline Phosphatase 71 U/L (38-126); Aspartate Aminotransferase 30 IU/L (17-59); BUN Creatinine Ratio 19.4 (6-22); Bilirubin Total 0.2 mg/dL (0.2-1.3); Blood Urea Nitrogen 21 mg/dL (9-20); C-Reactive Protein Quant < 0.5 mg/dL (<1.0); Calcium 9.1 mg/dL (8.4-10.2); Carbon Dioxide 30 mmol/L (22-32); Chloride 103 mmol/L (98-107); Estimated Glomerular Filt Rate > 60 mL/min (>60); Globulin 2.4 g/dL (1.7-4.1); Glucose 99 mg/dL (80-110); HEMOLYSIS < 15 (0-50); Potassium 4.4 mmol/L (3.4-5.1); Sodium 137 mmol/L (137-145); Total Protein 5.9 g/dL (6.3-8.2)
[2024-10-07 16:19] LABS: TSH w/ Reflex to FT4 2.29 uIU/mL (0.47-4.68)
[2024-10-07 16:22] LABS: Erythrocyte Sedimentation Rate 3 MM/HR (0-15)
== END ==
LOC: LAB 14:39
PROVIDERS: Family Provider Internal Medicine; PCP Internal Medicine; Referring Provider Internal Medicine; Visit Provider Internal Medicine
DX: C85.90 Non-Hodgkin lymphoma, unspecified, unspecified site (principal); E03.9 Hypothyroidism, unspecified; N40.1 Benign prostatic hyperplasia with lower urinary tract symptoms; I42.9 Cardiomyopathy, unspecified
CPT/HCPCS: 36415; 80053; 84443; 85025; 85651; 86140

== ENCOUNTER → 2025-02-05 09:13 | Outpatient (CLI) | payer MEDICARE, SELFPAY ==
[2023-08-30 17:16] VITALS: BMI 20.7
[2025-02-05 09:42] LABS: Add Manual Diff / Slide Review NO; Basophils Absolute Auto 0 /uL (0-100); Basophils Percent Auto 0.6 % (0-2); Eosinophils Absolute Auto 200 /uL (0-450); Eosinophils Percent Auto 3.3 % (2-4); Hematocrit 46.5 % (41-53); Hemoglobin 15.6 g/dL (13.5-17.5); Lymphocytes Absolute Auto 1200 /uL (1100-4500); Lymphocytes Percent Auto 19.6 % (25-40); Mean Corpuscular HGB Conc 33.4 % (30-36); Mean Corpuscular Hemoglobin 32.2 PG (26-34); Mean Corpuscular Volume 96.2 fL (80-100); Monocytes Absolute Auto 400 /uL (0-900); Monocytes Percent Auto 6.9 % (3-14); Neutrophils Absolute Auto 4300 /uL (1500-7000); Neutrophils Percent Auto 69.6 % (50-75); Platelet Count 262 X10^3/uL (150-400); Red Blood Cell Count 4.84 X10^6/uL (4.5-5.9); Red Cell Distribution Width 14.1 % (11.6-14.8); White Blood Cell Count 6.2 X10^3/uL (4.5-11.0)
[2025-02-05 10:08] LABS: Alanine Aminotransferase 23 IU/L (<50); Albumin 3.9 g/dL (3.5-5.0); Albumin Globulin Ratio 1.4 (1.0-2.8); Alkaline Phosphatase 62 U/L (38-126); Aspartate Aminotransferase 35 IU/L (17-59); BUN Creatinine Ratio 18.5 (6-22); Bilirubin Total 0.7 mg/dL (0.2-1.3); Blood Urea Nitrogen 17 mg/dL (9-20); C-Reactive Protein Quant < 0.5 mg/dL (<1.0); Calcium 9.3 mg/dL (8.4-10.2); Carbon Dioxide 32 mmol/L (22-32); Chloride 102 mmol/L (98-107); Estimated Glomerular Filt Rate > 60 mL/min (>60); Globulin 2.7 g/dL (1.7-4.1); Glucose 69 mg/dL (70-99); HEMOLYSIS 17 (0-50); Lipase 83 U/L (23-300); Potassium 4.5 mmol/L (3.4-5.1); Sodium 139 mmol/L (137-145); Total Protein 6.6 g/dL (6.3-8.2)
[2025-02-05 10:19] LABS: Free T4, Direct Thyroxine 1.13 ng/dL (0.78-2.19)
[2025-02-05 10:23] LABS: Erythrocyte Sedimentation Rate 2 MM/HR (0-15)
[2025-02-05 10:33] LABS: Thyroid Stimulating Hormone 2.89 uIU/mL (0.47-4.68)
== END ==
PROVIDERS: Family Provider Internal Medicine; PCP Internal Medicine; Referring Provider Internal Medicine; Visit Provider Internal Medicine
DX: K20.0 Eosinophilic esophagitis (principal); R53.1 Weakness; D64.9 Anemia, unspecified; E03.9 Hypothyroidism, unspecified
CPT/HCPCS: 36415; 80053; 83690; 84439; 84443; 85025; 85651; 86140